=== PATIENT | male | born 1965 | race Caucasian/White ===

== ENCOUNTER 2018-03-21 11:07 | Inpatient (IN) | payer BC ==
[2018-03-21] MEDS ORDERED: methylPREDNISolone 125 MG* 2 ML VIAL IV ONE (11:28)
[2018-03-21] MEDS ORDERED: Albuterol/Ipratropium NEB.SOL* Albuterol 2.5 MG/Ipratropium 0.5 MG 3 ML INH ONE (11:28)
[2018-03-21] MEDS ORDERED: LORazepam INJ* 2 MG/ML 1 ML VIAL IV PUSH ONE (11:32)
--- NOTE | 2018-03-21 11:57 | RAD ---
INDICATION: Shortness of breath. COMPARISON: There are no relevant prior studies available for comparison. TECHNIQUE: A portable view of the chest was obtained. FINDINGS: Cardiac and mediastinal contours appear to be within normal limits. The lungs are underinflated and grossly clear. No pleural effusion is seen. IMPRESSION: LOW LUNG VOLUMES, NO EVIDENCE FOR ACUTE DISEASE.
[2018-03-21 12:04] LABS: ABS Basophils 0 10^3/ul (0-0.2); ABS Eosinophils 0 10^3/ul (0-0.6); ABS Lymphocytes 1.4 10^3/ul (1.0-4.8); ABS Monocytes 1.1 10^3/ul (0-0.8); ABS Neutrophils 11.8 10^3/ul (1.5-7.7); ABS Nucleated RBC 0 10^3/ul; Eosinophil % 0.2 % (0-6); Hematocrit 42 % (42-52); Hemoglobin 14.9 g/dl (14.0-18.0); Lymphocyte % 9.7 % (25-47); Mean Corpuscular HGB Conc 36 g/dl (31-36); Mean Corpuscular Hemoglobin 33 pg (27-31); Mean Corpuscular Volume 91 fL (80-94); Mean Platelet Volume 7.4 um3 (7.4-10.4); Nucleated Red Blood Cells % 0.1; Platelet Count 333 10^3/ul (150-450); Red Blood Count 4.57 10^6/ul (4.00-5.40); Red Cell Distribution Width 12 % (10.5-15); White Blood Count 14.4 10^3/ul (3.5-10.8)
[2018-03-21 12:39] LABS: EGFR Non-African American 100.5 (>60)
[2018-03-21] MEDS ORDERED: Potassium Chlor TAB* 20 MEQ TAB.ER PO ONE (12:45)
--- NOTE | 2018-03-21 12:47 | ED ---
Respiratory - HPI Summary HPI Summary: Pt is a 52 y/o male who [facility]/o [facility] distress. He states he began having difficulty breathing 3 weeks ago, and c/o raspy voice, throat swelling, a partially closed airway, and chest tightness. He has been to the [facility], and states the doctors there think something ruptured. Pt is currently on antibiotics and prednisone. Although the prednisone has been helping with the swelling, he states its been making him have panic attacks and wants to stop the medication. He has spent the past 2 nights in the [facility]. He denies any COPD, asthma, emphysema, CHF, or psychiatric problems. - History of Current Complaint Chief Complaint: EDRespiratoryDistress Stated Complaint: OBSTUCTED AIRWAY Time Seen by Provider: 03/21/18 11:27 Hx Obtained From: Patient Onset/Duration: Gradual Onset, Lasting Weeks - 3, Still Present Pain Intensity: 0 Character: Wheezing, Dyspnea at Rest Sputum Amount: None Alleviating Factor(s): Steriods - Prednisone, Antibiotics Associated Signs and Symptoms: SOB, Chest Pain - Tightness, Wheezing - Allergy/Home Medications Allergies/Adverse Reactions: Allergies Allergy/AdvReac Type Severity Reaction Status Date / Time No Known Allergies Allergy Verified 03/21/18 11:20 Home Medications: Home Medications Hydrochlorothiazide TAB* [Hydrodiuril TAB*] 25 mg PO DAILY 03/21/18 [History Confirmed 03/21/18] Metoprolol Tartrate [Lopressor] 50 mg PO BID 03/21/18 [History Confirmed ] amLODIPine TAB* [Norvasc 5 mg TAB*] 10 mg PO DAILY 03/21/18 [History Confirmed 03/21/18] predniSONE [Prednisone 20 MG TAB] 20 mg PO DAILY 03/21/18 [History Confirmed ] PMH/Surg Hx/FS Hx/Imm Hx Cardiovascular History: Denies: Hx Congestive Heart Failure Respiratory History: Denies: Hx Asthma, Hx Chronic Obstructive Pulmonary Disease (COPD) Psychiatric History: Denies: Hx Anxiety Infectious Disease History: No Infectious Disease History: Denies: Traveled Outside the [place] in Last 30 Days - Family History Known Family History: Negative: Diabetes - Social History Alcohol Use: Occasionally Hx Substance Use: No Substance Use Type: Reports: None Hx Tobacco Use: No Smoking Status (MU): Never Smoked Tobacco Review of Systems Positive: Other - Throat swelling Positive: Chest Pain - tightness Positive: Shortness Of Breath All Other Systems Reviewed And Are Negative: Yes Physical Exam - Summary Physical Exam Summary: Appearance: Well appearing, no pain distress Skin: warm, dry, reflects adequate perfusion Head/face: normal Eyes: EOMI, RADHA ENT: normal Neck: supple, non-tender Respiratory: bilateral wheezing, Cardiovascular: tachycardic Abdomen: non-tender, soft Bowel: present Musculoskeletal: normal, strength/ROM intact Neuro: normal, sensory motor intact, A&Ox3 Triage Information Reviewed: Yes Vital Signs On Initial Exam: Initial Vitals Temp Pulse Resp BP Pulse Ox 97.9 F 96 20 159/134 100 03/21/18 11:15 03/21/18 11:15 03/21/18 11:15 03/21/18 11:15 03/21/18 11:15 Vital Signs Reviewed: Yes Diagnostics - Vital Signs Vital Signs Temp Pulse Resp BP Pulse Ox 03/21/18 12:09 20 03/21/18 11:47 101 150/80 99 03/21/18 11:40 106 18 95 03/21/18 11:31 98 16 150/113 95 03/21/18 11:29 100 96 03/21/18 11:15 97.9 F 96 20 159/134 100 - Laboratory Lab Results: Lab Results 03/21/18 03/21/18 03/21/18 Range/Units 11:45 11:55 11:55 WBC 14.4 H (3.5-10.8) 10^3/ul RBC 4.57 (4.00-5.40) 10^6/ul Hgb 14.9 (14.0-18.0) g/dl Hct 42 (42-52) % MCV 91 (80-94) fL MCH 33 H (27-31) pg MCHC 36 (31-36) g/dl RDW 12 (10.5-15) % Plt Count 333 (150-450) 10^3/ul MPV 7.4 (7.4-10.4) um3 Neut % (Auto) 81.8 (38-83) % Lymph % (Auto) 9.7 L (25-47) % Don[place]han % (Auto) 8.0 H (0-7) % Eos % (Auto) 0.2 (0-6) % Baso % (Auto) 0.3 (0-2) % Absolute Neuts (auto) 11.8 H (1.5-7.7) 10^3/ul Absolute Lymphs (auto) 1.4 (1.0-4.8) 10^3/ul Absolute Monos (auto) 1.1 H (0-0.8) 10^3/ul Absolute Eos (auto) 0 (0-0.6) 10^3/ul Absolute Basos (auto) 0 (0-0.2) 10^3/ul Absolute Nucleated RBC 0 10^3/ul Nucleated RBC % 0.1 D-Dimer, Quantitative (Less Than 230) ng/mL ABG pH 7.42 (7.35-7.45) ABG pCO2 50 H (35-45) mmHg ABG pO2 201 H (80-100) mmHg ABG HCO3 30.0 (19-31) mmol/L ABG O2 Saturation 99.7 H (95-98) % ABG Base Excess 6.5 H (-2.0-2.0) Sodium 130 L (135-145) mmol/L Potassium 3.2 L (3.5-5.0) mmol/L Chloride 89 L (101-111) mmol/L Carbon Dioxide 33 H (22-32) mmol/L Anion Gap 8 (2-11) mmol/L BUN 11 (6-24) mg/dL Creatinine 0.81 (0.67-1.17) mg/dL Est GFR ( Amer) 121.6 (>60) Est GFR (Non-Af Amer) 100.5 (>60) BUN/Creatinine Ratio 13.6 (8-20) Glucose 107 H (70-100) mg/dL Lactic Acid (0.5-2.0) mmol/L Calcium 9.5 (8.6-10.3) mg/dL Total Bilirubin 1.20 H (0.2-1.0) mg/dL AST 18 (13-39) U/L ALT 21 (7-52) U/L Alkaline Phosphatase 83 (34-104) U/L Troponin I 0.01 (<0.04) ng/mL Total Protein 7.6 (6.4-8.9) g/dL Albumin 4.3 (3.2-5.2) g/dL Globulin 3.3 (2-4) g/dL Albumin/Globulin Ratio 1.3 (1-3) 03/21/18 03/21/18 Range/Units 11:55 11:55 WBC (3.5-10.8) 10^3/ul RBC (4.00-5.40) 10^6/ul Hgb (14.0-18.0) g/dl Hct (42-52) % MCV (80-94) fL MCH (27-31) pg MCHC (31-36) g/dl RDW (10.5-15) % Plt Count (150-450) 10^3/ul MPV (7.4-10.4) um3 Neut % (Auto) (38-83) % Lymph % (Auto) (25-47) % Don[place]han % (Auto) (0-7) % Eos % (Auto) (0-6) % Baso % (Auto) (0-2) % Absolute Neuts (auto) (1.5-7.7) 10^3/ul Absolute Lymphs (auto) (1.0-4.8) 10^3/ul Absolute Monos (auto) (0-0.8) 10^3/ul Absolute Eos (auto) (0-0.6) 10^3/ul Absolute Basos (auto) (0-0.2) 10^3/ul Absolute Nucleated RBC 10^3/ul Nucleated RBC % D-Dimer, Quantitative < 200 (Less Than 230) ng/mL ABG pH (7.35-7.45) ABG pCO2 (35-45) mmHg ABG pO2 (80-100) mmHg ABG HCO3 (19-31) mmol/L ABG O2 Saturation (95-98) % ABG Base Excess (-2.0-2.0) Sodium (135-145) mmol/L Potassium (3.5-5.0) mmol/L Chloride (101-111) mmol/L Carbon Dioxide (22-32) mmol/L Anion Gap (2-11) mmol/L BUN (6-24) mg/dL Creatinine (0.67-1.17) mg/dL Est GFR ( Amer) (>60) Est GFR (Non-Af Amer) (>60) BUN/Creatinine Ratio (8-20) Glucose (70-100) mg/dL Lactic Acid 1.1 (0.5-2.0) mmol/L Calcium (8.6-10.3) mg/dL Total Bilirubin (0.2-1.0) mg/dL AST (13-39) U/L ALT (7-52) U/L Alkaline Phosphatase (34-104) U/L Troponin I (<0.04) ng/mL Total Protein (6.4-8.9) g/dL Albumin (3.2-5.2) g/dL Globulin (2-4) g/dL Albumin/Globulin Ratio (1-3) Result Diagrams: 03/21/18 11:55 03/21/18 11:55 Lab Statement: Any lab studies that have been ordered have been reviewed, and results considered in the medical decision making process. - Radiology CXR Xray Interpretation: Positive (See Comments) - LOW LUNG VOLUMES, NO EVIDENCE FOR ACUTE DISEASE. ED physician reviewed radiology report. Radiology Interpretation Completed By: Radiologist - CT Neck CT CT Interpretation: Positive (See Comments) - The constellation of findings is concerning for a neoplastic lesion involving the LEFT aspect of the larynx with local extension. Direct optical inspection suggested. Negative for lymphadenopathy based on short axis size criteria. ED physician reviewed radiology report. CT Interpretation Completed By: Radiologist - EKG 11:55 Cardiac Rate: NL - 97 bpm EKG Rhythm: Sinus Rhythm EKG Interpretation: No acute changes. Disposition - Course Course Of Treatment: Pt is a 52 y/o male who presents to [facility] c/o respiratory distress. He states he began having difficulty breathing 3 weeks ago, and c/o raspy voice, throat swelling, a partially closed airway, and chest tightness. Pt is currently on antibiotics and prednisone. Although the prednisone has been helping with the swelling, he states its been making him have panic attacks and wants to stop the medication. He has spent the past 2 nights in the [facility]. He denies any COPD, asthma, emphysema, CHF. A physical exam revealed bilateral wheezing. A CXR revealed LOW LUNG VOLUMES, NO EVIDENCE FOR ACUTE DISEASE. A neck CT revealed The constellation of findings is concerning for a neoplastic lesion involving the LEFT aspect of the larynx with local extension. Direct optical inspection suggested. Negative for lymphadenopathy based on short axis size criteria. An EKG revealed normal rate of 97 bpm. 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 Discussed with Dr. Navarrete, who recommends pt be admitted to the ICU, and he will visit the pt in the ICU. Dr. Whittaker accepts pt for admission. Pt is agreeable with this plan. - Differential Dx - Cardiopulmonary Differential Diagnoses - Cardiopulmonary: Acute Dyspnea, Bronchitis, CHF, Exacerbation Of COPD, Laryngitis, Pulmonary Edema - Diagnoses Provider Diagnoses: Dyspnea, Stridor, Laryngeal neoplasm - Physician Notifications Discussed Care Of Patient With: Arnoldo Navarrete Time Discussed With Above Provider: 14:30 Instructed by Provider To: Admit As Inpatient - Admit pt to ICU, will visit pt in ICU - Critical Care Time Critical Care Time: 30-74 min - CCT is exclusive of separate billable procedures Discharge - Sign-Out/Discharge Documenting (check all that apply): Patient Departure - Admit, Sign-Out Patient Signing out patient TO: Yolande Whittaker - Discharge Plan Condition: Stable Disposition: ADMITTED TO [facility] - Billing Disposition and Condition Condition: STABLE Disposition: Admitted to [facility] - Attestation Statements Document Initiated by Scribe: Yes Documenting Scribe: Amber Bradley Provider For Whom Scribe is Documenting (Include Credential): James Langley MD Scribe Attestation: IAmber, scribed for James Langley MD on 03/21/18 at 1530. Scribe Documentation Reviewed: Yes Provider Attestation: The documentation as recorded by the efraínibAmber persaud accurately reflects the service I personally performed and the decisions made by me, James Langley MD
[2018-03-21] MEDS ORDERED: Iohexol 300* (CONTRAST) 10 ML SDV IV ONE (12:52)
--- NOTE | 2018-03-21 13:50 | RAD ---
INDICATION: Stridor and shortness of breath for 2 weeks. COMPARISON: Chest radiograph of the same date. TECHNIQUE: Multidetector CT images skull base to lung apices with 50 mL Omnipaque 300 IV contrast. Multiplanar reformation. REPORT: Clear visualized lung apices. Unremarkable parotid, submandibular, and thyroid glands. Unremarkable pharyngeal mucosal space contours and symmetric clear parapharyngeal fat. Irregular soft tissue thickening involving the LEFT false and true vocal cords. Asymmetric rarefaction of the LEFT arytenoid cartilage. Additionally there is segmental rarefaction of the LEFT thyroid cartilage with asymmetric mild overlying soft tissue density thickening. Contiguous asymmetric soft tissue density thickening of the LEFT aspect of the proximal subglottic airway extending up to 3 cm below the true vocal cords. No involvement of the RIGHT aspect of the larynx evident. 0.9 cm short axis normal morphology LEFT level 2 internal jugular lymph node within normal size limits with preserved fatty hilar architecture. Negative for lymphadenopathy based on short axis size criteria. Patent bilateral internal jugular veins. Mild calcific plaque at the carotid bifurcations. 0.9 cm mucous retention cyst or polyp at the anterior wall of the LEFT maxillary sinus. Negative for paranasal sinus fluid levels. Clear mastoid air spaces. Unremarkable orbital contents. Negative for suspicious osseous lesions. Cervical spine degenerative spondylosis and facet joint osteoarthritis most prominent at C5-C6 and C6-C7. IMPRESSION: #. The constellation of findings is concerning for a neoplastic lesion involving the LEFT aspect of the larynx with local extension. Direct optical inspection suggested. #. Negative for lymphadenopathy based on short axis size criteria.
[2018-03-21] MEDS ORDERED: Morphine INJ* 2 MG/ML 1 ML SYRINGE (TWO MG - NEW SYRINGE VERSION) IV PRN (15:01)
[2018-03-21] MEDS: KCL 20 MEQ/100 ML IVPREMIX* 20 MEQ/100 ML BAG IV SCH ×2 (16:02→23:20)
[2018-03-21] MEDS ORDERED: Lidocaine 4% TOPICAL* 50 ML TOP.SOLN TOPICAL ONE (17:00)
[2018-03-21] MEDS ORDERED: Phenylephrine 0.5% NASAL* BTL BOTH NARES ONE (17:30)
[2018-03-21] MEDS: methylPREDNISolone SOD 40 MG* 1 ML VIAL IV SCH (17:51)
[2018-03-21] MEDS ORDERED: Lidocain 1% EPI 1:100,000 * 30 ML MDV ONE (18:19)
--- NOTE | 2018-03-21 18:28 | HP ---
HISTORY AND PHYSICAL: DATE OF ADMISSION: 03/21/18 TIME OF EVALUATION: 2:50 p.m. CHIEF COMPLAINT: "It is hard to breathe." HISTORY OF PRESENT ILLNESS: Mr. Phelps is a 52-year-old male with a past medical history of hypertension who presents to the emergency room with complaints of difficulty breathing. He states that 3 weeks ago, he woke up with throat pain and sensation that something had "ruptured" in his throat. He states that he developed some pain and difficulty breathing that has gotten progressively worse. He was seen by his primary care provider and prescribed antibiotic and prednisone. He states that he had improvement of some of the external edema but felt that his throat was getting worse. He states that he has seen Dr. Villalba multiple times and actually had been referred to see an ENT , but the appointment is not until 04/13/18 and as his symptoms continue to worsen, he was referred to the emergency room for further evaluation. He denies fever, chills, chest pain, dysphagia. He states that he has become extremely anxious especially with the use of prednisone and because he is concerned, he would not be able to breathe. PAST MEDICAL HISTORY: Hypertension. PAST SURGICAL HISTORY: Status post appendectomy. SOCIAL HISTORY: The patient states that he used to chew tobacco sporadically when he was younger and also smokes cigars sporadically. No regular cigarettes. No drug use and he occasionally also has a beer, but has not had any drinks for the past 3 weeks. FAMILY HISTORY: He states that most of his family is pretty healthy and dies of old age. Denies history of malignancies. REVIEW OF SYSTEMS: A 14-point review of systems was performed, all the pertinent negatives and positive findings are in the HPI. PHYSICAL EXAMINATION GENERAL: The patient is an obese gentleman, sitting up in the ED stretcher, appears to be anxious, but is not in respiratory distress. VITAL SIGNS: Temperature 97.9, heart rate is 110, respiratory rate is 21, oxygen saturation 94% on room air, blood pressure is 149/114. NECK: Supple. Soft. No palpable lymphadenopathy. There is significant stridor. CHEST: Breath sounds present bilaterally with no added sounds. CVS: Normal S1, S2. Regular rate and rhythm. ABDOMEN: Obese. Bowel sounds are present. NEURO: He is alert and oriented x3. Able to move all 4 extremities. LABORATORY AND IMAGING DATA: The patient had a CBC that showed WBC of 14.4, hemoglobin of 14.9, hematocrit of 42, and platelets of 333 with 81% neutrophils. D- dimer is less than 200. ABG showed a pH of 7.42, pCO2 of 50, pO2 of 201, bicarb of 30. Chemistry showed a sodium of 130, potassium of 3.2, chloride 189, bicarb 33, BUN of 11, creatinine of 0.81, glucose of 107. Lactic acid of 1.1. Calcium 9.5. LFTs are normal except for mild elevation of total bilirubin of 1.2. Chest x-ray showed low lung volumes, but no evidence of acute disease. CT of the neck shows irregular soft tissue thickening involving the left false and true vocal cords. Asymmetric rarefaction of the left arytenoid cartilage with segmental rarefaction of the left thyroid cartilage with asymmetric mild overlying soft tissue density thickening. Contiguous asymmetric soft tissue density thickening of the left aspect of the proximal supraglottic airway extending up to 3 cm below the true vocal cords. There is no involvement of the right. There is no lymphadenopathy based on short axis size criteria. ASSESSMENT AND PLAN: Mr. Phelps is a 52-year-old male with past medical history of hypertension, obesity with a BMI of 31 who presents to the emergency room with complaints of 3 weeks of progressive shortness of breath and sensation that something "ruptured" in his throat, found to have a lesion involving the left aspect of the larynx suggestive of a neoplastic lesion. 1. Stridor. The patient will be admitted to the intensive care unit and a consultation was requested with Dr. Valles to help manage his airways and also with ENT, Dr. Navarrete for further diagnostic measures. The patient states that his tobacco exposure is not intense but reviewing his images, this could be a malignancy. At this point, he appears to be anxious and has stridor but he is not tachypneic. His oxygen saturation is 95% on 2 L nasal cannula. I am going to continue him on IV steroids and he will be closely monitored in the intensive care unit. 2. Hypertension. It is mildly uncontrolled at this time. We are going to continue his amlodipine and metoprolol and continue to monitor. 3. Hypokalemia. We will replete. 4. DVT prophylaxis. The patient has score of 2 on the DVT Prophylaxis Risk Assessment Guide and he will be started on SCDs. 5. Code status is full. TIME SPENT: Approximately 45 minutes were spent with patient interview, medical records review, physical examination to complete the admission; more than half of this time was spent [id number] with the patient and coordination of care. [id number]/[facility] #: [id number] ANAD
--- NOTE | 2018-03-21 21:38 | CONS ---
CONSULTATION REPORT: DATE OF CONSULT: 03/21/18 REQUESTING CONSULTATION: Dr. Santos is asking for the consultation, the patient in the ICU. HISTORY OF PRESENT ILLNESS: The patient is a 52-year-old who has had progressive shortness of breath. He first started losing his voice a while ago and it seemed to start acutely where he got sick, saw some blood. He also recently had some neck swelling, but most recently he has been having progressive worsening in his voice and shortness of breath and was admitted to the emergency room where he was noted to have significant stridor, oxygen in the low 90s and CT scan showing some type of obstructing mass in his larynx. He does not smoke cigarettes, he smokes marijuana recreationally and some cigars recreationally, but not recently. He is being treated for hypertension, but otherwise says he is healthy and no definitive antecedent cause of this. PHYSICAL EXAM: On physical examination, he is having audible inspiratory and expiratory stridor with oxygen saturation in the low 90s, on supplemental oxygen by face mask. Nasal laryngoscopy was performed after spraying his nose with Dar- Synephrine and 4% lidocaine. He has a significantly compromised airway. The larynx is rotated. He does not have left vocal cord movement, possibly a mass bulging in his supraglottis on that side that is mucosal. Exact visualization is very difficult. ASSESSMENT: The patient is having inspiratory expiratory stridor. He has some type of obstructing mass causing dysfunction of his larynx and airway obstruction. I believe that he potentially is in imminent danger of respiratory failure if left untreated. RECOMMENDATION: Emergent, awake tracheostomy, I do not think it is safe for intubation. We discussed the tracheostomy, the risks of airway obstruction by not doing this surgery, but we also discussed the small risk of airway obstruction during surgery, the fact that it needs to be done local, meaning not under full general anesthesia. We discussed the small risks of bleeding, infection. Once this is done and his airway is , he will feel better and that gives us the time to try to figure out what is going on. Tracheostomies can be permanent or temporary depending on need. The initial tracheostomy I am going to put him will not allow him to talk, but over time, it can be switched out to one to allow him to do so. [id number]/[facility] #: [id number] [facility] SYSTEM[facility]
[2018-03-21] MEDS: Metoprolol Tartrate TAB* 50 mg PO SCH (23:20)
[2018-03-22] MEDS ORDERED: KCL 20 MEQ/100 ML IVPREMIX* 20 MEQ/100 ML BAG ONE (02:07)
[2018-03-22] MEDS: KCL 20 MEQ/100 ML IVPREMIX* 20 MEQ/100 ML BAG IV SCH (02:20)
--- NOTE | 2018-03-22 05:04 | OP ---
DATE OF OPERATION: 03/21/18 - ROOM #ICU-07 DATE OF : 67 SURGEON: Misha Navarrete MD SALESPERSON FURNITURE: Dr. Blum. PRE-OP DIAGNOSIS: Stridor, laryngeal obstruction. POST-OP DIAGNOSIS: Stridor, laryngeal obstruction. OPERATIVE PROCEDURE: Tracheostomy under local with some IV sedation. ESTIMATED BLOOD LOSS: Less than 5 mL. INSTRUMENT USED: A #8 Shiley DCT tracheostomy tube was placed. DESCRIPTION OF PROCEDURE: The patient was taken from the ICU to the operating room and put in a semi recumbent position on the operating room table with his head extended, prepped with Betadine and injected with 1% lidocaine with 1:100, 000 epinephrine. A vertical incision made over the anterior tracheostomy tube, dissection was taken down through the fat, median raphe was opened, strap muscles retracted, thyroid isthmus was isolated, bovied to cut it and the anterior tracheal wall was exposed. A 11 blade was used to make an incision between 2 tracheal rings, this was widened with some Crump scissors. A tracheal cut had been placed opening open and a #8 DCT tracheostomy tube was placed and balloon was blown up and cannula was put in and he was connected to the ventilator and he was deepened at that time. The trach was sutured in place with 4 silks and a small portion of the superior incision was closed with some 3 -0 Vicryl. We then used the glide scope to do a laryngoscopy. He had significant airway obstruction but I am unsure why. There was no masses that I can see, just fullness with medialization of the vocal cord. The patient tolerated this procedure well, no complications, transferred to the ICU in stable condition. [id number]/[facility] #: [id number] MTDD
[2018-03-22] MEDS: methylPREDNISolone SOD 40 MG* 1 ML VIAL IV SCH ×2 (05:29→18:15)
[2018-03-22 06:15] LABS: ABS Basophils 0.1 10^3/ul (0-0.2); ABS Eosinophils 0 10^3/ul (0-0.6); ABS Lymphocytes 0.5 10^3/ul (1.0-4.8); ABS Monocytes 0.8 10^3/ul (0-0.8); ABS Neutrophils 20.7 10^3/ul (1.5-7.7); ABS Nucleated RBC 0.1 10^3/ul; Eosinophil % 0 % (0-6); Hematocrit 42 % (42-52); Lymphocyte % 2.4 % (25-47); Mean Corpuscular HGB Conc 36 g/dl (31-36); Mean Corpuscular Hemoglobin 33 pg (27-31); Mean Corpuscular Volume 92 fL (80-94); Mean Platelet Volume 7.7 um3 (7.4-10.4); Nucleated Red Blood Cells % 0.3; Platelet Count 307 10^3/ul (150-450); Red Blood Count 4.54 10^6/ul (4.00-5.40); Red Cell Distribution Width 12 % (10.5-15); White Blood Count 22.1 10^3/ul (3.5-10.8)
[2018-03-22 06:33] LABS: EGFR Non-African American 85.7 (>60)
[2018-03-22] MEDS: amLODIPine TAB* 5 MG PO SCH (07:30)
[2018-03-22] MEDS: Metoprolol Tartrate TAB* 50 mg PO SCH ×2 (07:30→22:56)
--- NOTE | 2018-03-22 12:15 | CONSULT ---
Consult Consult: Consultation Note -- Critical Care Requesting Physician: Dr Whittaker Reason for consult: upper airway obstruction, laryngeal mass Limitations in history/physical: trach'ed, no limiting Date of consult: 03/22/2018 HPI: 52y M pmhx of HTN; comes to ER for complaints of 2-3 weeks of increasing shortness of breath, change in voice. Recent [facility] ER visits with minimal improvement. in ER, tachypneic, sats low 90s. CXR clear. He showed stridor on exam. CT neck demonstrated left laryngeal mass. ENT consultation was done and decision for emergent trach. He is now s/p tracheostomy last night. Currently in bed, awake/alert, on trach collar, no distress. Afebrile, BP elevated, tachycardic intermittently. ED/floor Course: as above ROS: negative except for pertinent positives mentioned above. PMHx: HTN PSHx: none Family History: none significant Social History: Alcohol-social, Smoking-no cig, marijuana occasional, cigars at times, Drug use-none Allergies: Allergies Allergy/AdvReac Type Severity Reaction Status Date / Time No Known Allergies Allergy Verified 03/21/18 11:20 Home Medications: Hydrochlorothiazide TAB* [Hydrodiuril TAB*] 25 mg PO DAILY 03/21/18 [History Confirmed 03/21/18] Metoprolol Tartrate [Lopressor] 50 mg PO BID 03/21/18 [History Confirmed ] amLODIPine TAB* [Norvasc 5 mg TAB*] 10 mg PO DAILY 03/21/18 [History Confirmed 03/21/18] predniSONE [Prednisone 20 MG TAB] 20 mg PO DAILY 03/21/18 [History Confirmed ] Tele: nsr, sinus tachy at times Vitals: Vital Signs Temp 98 F 03/22/18 11:53 Pulse 99 03/22/18 12:00 Resp 23 03/22/18 12:00 BP 146/100 03/22/18 12:00 Pulse Ox 96 03/22/18 12:00 Intake & Output 03/21/18 03/22/18 03/22/18 18:59 06:59 18:59 Intake Total 1172 Output Total 825 500 625 Balance -825 672 -625 Weight 106 kg 106.1 kg Intake: IV Fluids 1172 KCl 323 NS (0.9%) 849 Output: Urine 825 500 625 O2/Vent: trach collar Infusions: heplock Current Medications: Amlodipine Besylate (Norvasc Tab*) 10 mg PO DAILY [facility] Last Admin: 03/22/18 07:30 Dose: Not Given Methylprednisolone Sodium Succinate (Solu-Medrol 40 Mg) 40 mg IV Q12H [facility] Last Admin: 03/22/18 05:29 Dose: 40 mg Metoprolol Tartrate (Lopressor Tab*) 50 mg PO BID [facility] Last Admin: 03/22/18 07:30 Dose: Not Given Metoprolol Tartrate (Lopressor Iv*) 5 mg IV Q6H PRN PRN Reason: BLOOD PRESSURE Morphine Sulfate (Morphine Inj ((Syringe))*) 2 mg IV Q2H PRN PRN Reason: PAIN Physical Exam: General: awake, alert, no distress, no diaphoresis Head: normocephalic, atraumatic HEENT: no pallor, no icterus, moist mucous membranes Neck: soft, supple, no jvd; Trach+ CVS: normal rate, regular, no murmur Resp: bilateral air entry, no rhales, no wheeze, no rhonchi, no acc muscle use Abdomen: soft, nontender, nondistended, bowel sounds present Ext: pulses+, warm, no edema Skin: intact Neuro: awake, alert, orientedx3, moving all extremities, no gross focal deficit Labs: Laboratory Results - last 24 hr 03/21/18 03/21/18 03/21/18 11:55 11:55 11:55 WBC RBC Hgb Hct MCV MCH MCHC RDW Plt Count MPV Neut % (Auto) Lymph % (Auto) [place] % (Auto) Eos % (Auto) Baso % (Auto) Absolute Neuts (auto) Absolute Lymphs (auto) Absolute Monos (auto) Absolute Eos (auto) Absolute Basos (auto) Absolute Nucleated RBC Nucleated RBC % Sodium 130 L Potassium 3.2 L Chloride 89 L Carbon Dioxide 33 H Anion Gap 8 BUN 11 Creatinine 0.81 Est GFR ( Amer) 121.6 Est GFR (Non-Af Amer) 100.5 BUN/Creatinine Ratio 13.6 Glucose 107 H Lactic Acid 1.1 Calcium 9.5 Total Bilirubin 1.20 H AST 18 ALT 21 Alkaline Phosphatase 83 Troponin I 0.01 B-Natriuretic Peptide 41 Total Protein 7.6 Albumin 4.3 Globulin 3.3 Albumin/Globulin Ratio 1.3 03/22/18 03/22/18 06:07 06:07 WBC 22.1 H RBC 4.54 Hgb 15.0 Hct 42 MCV 92 MCH 33 H MCHC 36 RDW 12 Plt Count 307 MPV 7.7 Neut % (Auto) 93.8 H Lymph % (Auto) 2.4 L [place] % (Auto) 3.6 Eos % (Auto) 0 Baso % (Auto) 0.2 Absolute Neuts (auto) 20.7 H Absolute Lymphs (auto) 0.5 L Absolute Monos (auto) 0.8 Absolute Eos (auto) 0 Absolute Basos (auto) 0.1 Absolute Nucleated RBC 0.1 Nucleated RBC % 0.3 Sodium 136 Potassium 4.3 Chloride 99 L Carbon Dioxide 30 Anion Gap 7 BUN 12 Creatinine 0.93 Est GFR ( Amer) 103.6 Est GFR (Non-Af Amer) 85.7 BUN/Creatinine Ratio 12.9 Glucose 136 H Lactic Acid Calcium 9.5 Total Bilirubin AST ALT Alkaline Phosphatase Troponin I B-Natriuretic Peptide Total Protein Albumin Globulin Albumin/Globulin Ratio Imaging: ct neck 03/21 - left laryngeal mass+ Assessment: 52y M pmhx of HTN; comes to ER for complaints of 2-3 weeks of increasing shortness of breath, change in voice. Recent [facility] ER visits with minimal improvement. in ER, tachypneic, sats low 90s. CXR clear. He showed stridor on exam. CT neck demonstrated left laryngeal mass. ENT consultation was done and decision for emergent trach. He is now s/p tracheostomy last night. -Upper airway obstruction 2/2 to laryngeal mass -acute respiratory distress, improved -s/p tracheostomy 03/21 -Hypertension Plan: Neuro- stable CVS- hypertensive; metoprolol 5mg iv q6h. metoprolol/norvasc PO when able to take po. Resp- s/p trach; stable on trach collar. minimal secretions. MRI of neck pending. ENT following. Will require tissue sampling at some point to know etiology. ID- afebrile. wbc 22. nontoxic. no sepsis source. no abx indicated, monitoring off. GI- NPO. s/p trach. will talk to ENT about eating with cuff down vs need for PEG. PPI proph daily while on steroids. Renal- Cr okay, making urine. no boykin Heme- hg stable. plt okay. DVT proph, mechanical, chemical if no contraind Endo- fingerstick q6h Musculsk- pressure ulcer prophylaxis. Bedrest Wounds- wound care to trach site Nutrition- NPO DVT prophylaxis: SCDs GI prophylaxis: ppi Central Line: no Arterial Line: no Boykin Cathetor: no Disposition: ICU today Code Status: full code Costa Jacobsen MD [employer]ing Wheel [employer]aker (Electronically Signed)
[2018-03-22] MEDS: Metoprolol Tartrate IV* 1 MG/ML 5 ML VIAL IV PRN (14:55)
[2018-03-22] MEDS ORDERED: hydrALAZINE IV* 20 MG/ML VIAL IV SLOW PU PRN (15:29)
[2018-03-22] MEDS ORDERED: D5LR 1000 ML BAG* 1,000 ML IV SCH (16:00)
[2018-03-22] MEDS: ZOSYN 3.375 GM Q6H - Intermittant 30 min Infusion IVPB SCH ×2 (20:23)
[2018-03-23] MEDS: ZOSYN 3.375 GM Q6H - Intermittant 30 min Infusion IVPB SCH ×4 (02:40→07:39)
[2018-03-23] MEDS: methylPREDNISolone SOD 40 MG* 1 ML VIAL IV SCH ×2 (07:39→18:16)
[2018-03-23] MEDS: Metoprolol Tartrate IV* 1 MG/ML 5 ML VIAL IV PRN ×2 (07:39→16:23)
[2018-03-23] MEDS: Pantoprazole IV* 40 MG IV SCH (07:39)
[2018-03-23] MEDS: Metoprolol Tartrate TAB* 50 mg PO SCH ×3 (07:40→21:37)
[2018-03-23] MEDS: amLODIPine TAB* 5 MG PO SCH (07:40)
[2018-03-23] MEDS ORDERED: Piperacillin/Tazobac ADVAN(*) 3.375 GM in NS 0.9% 100 ML* 100 ML IVPB SCH (09:00)
--- NOTE | 2018-03-23 10:41 | PN ---
Progress Note - Progress Note Date of Service: 03/23/18 Note: Progress Note -- Critical Care 24 hr events -on trach collar; no distress. tmax 100.1 yesterday. cough+, minimal sputum. awake/alert, in chair. Tele: nsr Vitals: Vital Signs Temp 99.0 F 03/23/18 07:52 Pulse 86 03/23/18 10:00 Resp 16 03/23/18 10:00 BP 134/95 03/23/18 10:00 Pulse Ox 94 03/23/18 10:00 Intake & Output 03/22/18 03/23/18 03/23/18 18:59 06:59 18:59 Intake Total 824 0 Output Total 1175 450 Balance -1175 374 0 Weight 104.4 kg Intake: IV Fluids 824 ABX - ZOSYN 332 NS (0.9%) 492 Oral 0 Output: Urine 1175 450 O2/Vent: trach collar Infusions: d5-LR 50cc/hr Current Medications: Amlodipine Besylate (Norvasc Tab*) 10 mg PO DAILY [facility] Last Admin: 03/23/18 07:40 Dose: Not Given Hydralazine HCl (Apresoline Iv*) 2.5 mg IV SLOW PU Q6H PRN PRN Reason: hypertension DBP>95 Last Admin: 03/22/18 16:52 Dose: 2.5 mg Dextrose/Lactated Ringer's (D5lr 1000 Ml Bag*) 1,000 mls @ 50 mls/hr IV PER RATE [facility] Last Admin: 03/22/18 16:06 Dose: 50 mls/hr Piperacillin Sod/Tazobactam (Sod 3.375 gm/ Sodium Chloride) 100 mls @ 200 mls/ hr IVPB Q8H [facility] Methylprednisolone Sodium Succinate (Solu-Medrol 40 Mg) 40 mg IV Q12H [facility] Last Admin: 03/23/18 07:39 Dose: 40 mg Metoprolol Tartrate (Lopressor Tab*) 50 mg PO BID [facility] Last Admin: 03/23/18 07:40 Dose: Not Given Metoprolol Tartrate (Lopressor Iv*) 5 mg IV Q6H PRN PRN Reason: SYSTOLIC >140 Last Admin: 03/23/18 07:39 Dose: 5 mg Morphine Sulfate (Morphine Inj ((Syringe))*) 2 mg IV Q2H PRN PRN Reason: PAIN Pantoprazole Sodium (Protonix Iv*) 40 mg IV DAILY [facility] Last Admin: 03/23/18 07:39 Dose: 40 mg Physical Exam: General: awake, alert, no distress, no diaphoresis Head: normocephalic, atraumatic HEENT: no pallor, no icterus, moist mucous membranes Neck: soft, supple, no jvd; Trach+ CVS: normal rate, regular, no murmur Resp: bilateral air entry, no rhales, no wheeze, no rhonchi, no acc muscle use Abdomen: soft, nontender, nondistended, bowel sounds present Ext: pulses+, warm, no edema Skin: intact Neuro: awake, alert, orientedx3, moving all extremities, no gross focal deficit Labs: - Imaging: ct neck 03/21 - left laryngeal mass+ Assessment: 52y M pmhx of HTN; comes to ER for complaints of 2-3 weeks of increasing shortness of breath, change in voice. Recent [facility] ER visits with minimal improvement. in ER, tachypneic, sats low 90s. CXR clear. He showed stridor on exam. CT neck demonstrated left laryngeal mass. ENT consultation was done and decision for emergent trach. He is now s/p tracheostomy last night. -Upper airway obstruction 2/2 to laryngeal mass -acute respiratory distress, improved -s/p tracheostomy 03/21 -Hypertension Plan: Neuro- stable CVS- hypertensive; metoprolol 5mg iv q6h, hydralazine IV prn. metoprolol/ norvasc PO when able to take po. Resp- s/p trach; stable on trach collar. minimal secretions. MRI of neck today. Plan for OR wednesday for mass resection by ENT. ID- afebrile. wbc 20s. may be 2/2 to steroids. nontoxic. no sepsis source. no abx indicated, monitoring off. GI- NPO. s/p trach. obtain swallow eval if he can eat around trach while deflated. WIll need to determine skilled nursing nutritional plan, PO vs PEG, depending on tissue findings. PPI proph daily while on steroids. Renal- Cr okay, making urine. no boykin. d5-Lr 50cc/hr Heme- hg stable. plt okay. DVT proph, mechanical, chemical if no contraind Endo- fingerstick q6h Musculsk- pressure ulcer prophylaxis. oob to chair Wounds- wound care to trach site Nutrition- NPO DVT prophylaxis: SCDs GI prophylaxis: ppi Central Line: no Arterial Line: no Boykin Cathetor: no Disposition: clinically stable for medical floor transfer on trach collar Code Status: full code Costa Jacobsen MD Reverse Engineer (Electronically Signed)
[2018-03-23] MEDS ORDERED: D5NS 0.9% 1000 ML BAG* 1,000 ML IV SCH ×2 (12:00→19:00)
[2018-03-23 13:15] LABS: Hematocrit 42 % (42-52); Hemoglobin 14.2 g/dl (14.0-18.0); Mean Corpuscular HGB Conc 34 g/dl (31-36); Mean Corpuscular Hemoglobin 32 pg (27-31); Mean Corpuscular Volume 94 fL (80-94); Mean Platelet Volume 8.4 um3 (7.4-10.4); Platelet Count 358 10^3/ul (150-450); Red Blood Count 4.45 10^6/ul (4.00-5.40); Red Cell Distribution Width 12 % (10.5-15); White Blood Count 25.5 10^3/ul (3.5-10.8)
[2018-03-23 13:25] LABS: EGFR Non-African American 87.8 (>60)
[2018-03-23] MEDS ORDERED: Gadoteridol* (CONTRAST) 279.3 MG/ML 10 ML IV ONE (13:55)
--- NOTE | 2018-03-23 14:29 | RAD ---
Indication: Upper airway obstruction. Soft tissue thickening noted on CT. Comparison: March 21, 2018 CT. Technique: Cytonicsa 1.5 Pamela [id number] with GEM suite. Pre and postcontrast MRI of the neck. 20 mL ProHance contrast administered IV. Report: Postsurgical change of tracheostomy. Mucosal thickening involving the LEFT false and true vocal cords with heterogeneous enhancement on the postcontrast series with contiguous extension to involve the arytenoid cartilage posteriorly and thyroid cartilage anterolaterally. Extension of enhancing material up to 0.7 cm superficial to the RIGHT thyroid cartilage anteriorly laterally possibly involving the overlying strap muscle. There is enhancement of the RIGHT false and true vocal cords without significant mass effect which may represent early infiltrative tumor involvement. Partial compression of the the LEFT piriform recess. Unremarkable RIGHT piriform recess, epiglottis, and vallecula. Unremarkable oral and nasopharyngeal mucosal space contours. Negative for lymphadenopathy based on short axis size criteria. Unremarkable submandibular, parotid, and thyroid glands. Patent internal jugular veins. No suspicious osseous lesions evident. Abnormal signal intensity at the posterior medial RIGHT lung apex/pleura/chest wall on the axial T2 FLAIR series is likely artifact given absence of corresponding abnormality on additional MRI series or March 21, 2018 CT exam. IMPRESSION: #. 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 #. Negative for lymphadenopathy based on short axis size criteria. #. Tracheostomy tube in place.
[2018-03-23] MEDS: hydrALAZINE IV* 20 MG/ML VIAL IV SLOW PU PRN ×2 (14:43→20:22)
[2018-03-23] MEDS ORDERED: Gadoteridol* (CONTRAST) 279.3 MG/ML 10 ML IV SCH (15:00)
[2018-03-23] MEDS: Piperacillin/Tazobac ADVAN(*) 3.375 GM in NS 0.9% 100 ML* 100 ML IVPB SCH ×2 (15:55→23:08)
--- NOTE | 2018-03-23 21:17 | CONS ---
PROGRESS REPORT: DATE OF SERVICE: 03/23/18 HISTORY OF PRESENT ILLNESS: The patient is doing well after his tracheostomy. He is sitting up in the chair, not having breathing difficulty. He is able to talk a little bit even with the #[address] Santana earlier in the day deflated the cuff. He had an MRI this afternoon that I am reviewing with him at this time. The MRI was not very helpful. My hope was it would help us delineate the extent of the mass and what type it is, but what we do now is that he has a large obstructing mass in his larynx. There is an outside chance that this is infection, but looking at it, it looks like a tumor of some sort. Unfortunately, most laryngeal tumors are malignant, but we do not know what it is at this time. He asked about removal of the mass and unfortunately with the size that it is, that we would probably mean a total laryngectomy, so obviously the hope is that it is not necessary. He is able to drink water without any problems, so I think a pureed diet advance as tolerated can be initiated. The plan is for microlaryngoscopy with biopsies and a tracheostomy change on Wednesday. I would put a fenestrated trach in that will allow him to talk better. From a laryngology standpoint, he could be transferred to the surgical floor. I discussed this with both the patient and Dr. Jacobsen. [id number]/[facility] #: [id number] PAZ
[2018-03-23] MEDS ORDERED: Metoprolol Tartrate IV* 1 MG/ML 5 ML VIAL IV PRN ×2 (23:25→23:28)
[2018-03-24] MEDS ORDERED: Metoprolol Tartrate IV* 1 MG/ML 5 ML VIAL IV PRN (04:16)
[2018-03-24] MEDS ORDERED: hydrALAZINE IV* 20 MG/ML VIAL IV SLOW PU ONE (04:16)
[2018-03-24] MEDS: Piperacillin/Tazobac ADVAN(*) 3.375 GM in NS 0.9% 100 ML* 100 ML IVPB SCH ×4 (08:56→18:49)
[2018-03-24] MEDS: Pantoprazole IV* 40 MG IV SCH (09:45)
[2018-03-24] MEDS: Metoprolol Tartrate TAB* 50 mg PO SCH ×2 (09:45→20:13)
[2018-03-24] MEDS: methylPREDNISolone SOD 40 MG* 1 ML VIAL IV SCH (09:45)
[2018-03-24] MEDS: amLODIPine TAB* 5 MG PO SCH (09:45)
[2018-03-24] MEDS: D5NS 0.9% 1000 ML BAG* 1,000 ML IV SCH (10:25)
--- NOTE | 2018-03-24 12:16 | PN ---
Subjective Date of Service: 03/24/18 Interval History: Patient with no complaints. Denies any pain to his throat or neck. Denies difficulty breath or chest pain. Denies fever or chills. Denies abd pain n/v/ d. lips that he feels "awesome" Noted to have pac's on the monitor. Family History: Unchanged from Admission Social History: Unchanged from Admission Past Medical History: Unchanged from Admission Objective Active Medications: Amlodipine Besylate (Norvasc Tab*) 10 mg PO DAILY [facility] Last Admin: 03/24/18 09:45 Dose: 10 mg Gadoteridol (Prohance* (Contrast)) 20 ml IV ONCE [facility] Stop: 03/25/18 13:54 Piperacillin Sod/Tazobactam (Sod 3.375 gm/ Sodium Chloride) 100 mls @ 25 mls/ hr IVPB Q8H [facility] Last Admin: 03/24/18 08:56 Dose: 25 mls/hr Dextrose/Sodium Chloride (D5ns 0.9% 1000 Ml Bag*) 1,000 mls @ 75 mls/hr IV .PER RATE [facility] Last Admin: 03/24/18 10:25 Dose: 75 mls/hr Methylprednisolone Sodium Succinate (Solu-Medrol 40 Mg) 40 mg IV DAILY [facility] Last Admin: 03/24/18 09:45 Dose: 40 mg Metoprolol Tartrate (Lopressor Tab*) 50 mg PO BID [facility] Last Admin: 03/24/18 09:45 Dose: 50 mg Metoprolol Tartrate (Lopressor Iv*) 5 mg IV Q6H PRN PRN Reason: HEART RATE/PULSE Morphine Sulfate (Morphine Inj ((Syringe))*) 2 mg IV Q2H PRN PRN Reason: PAIN Pantoprazole Sodium (Protonix Iv*) 40 mg IV DAILY [facility] Last Admin: 03/24/18 09:45 Dose: 40 mg Vital Signs - 8 hr 03/24/18 03/24/18 03/24/18 04:16 04:58 05:00 Temperature Pulse Rate 67 68 76 Respiratory 16 16 20 Rate Blood Pressure 146/111 133/98 140/94 (mmHg) O2 Sat by Pulse 96 97 96 Oximetry 03/24/18 03/24/18 03/24/18 05:48 06:00 07:40 Temperature 97.2 F Pulse Rate 75 71 76 Respiratory 15 15 20 Rate Blood Pressure 128/88 121/86 143/103 (mmHg) O2 Sat by Pulse 92 91 97 Oximetry 03/24/18 03/24/18 03/24/18 07:53 07:55 08:00 Temperature Pulse Rate Respiratory 20 Rate Blood Pressure (mmHg) O2 Sat by Pulse 97 97 Oximetry Oxygen Devices in Use Now: Tracheostomy Collar Appearance: appears comfortable resting in bed, no respiratory distress Eyes: No Scleral Icterus Ears/Nose/Mouth/Throat: Mucous Membranes Moist Neck: NL Appearance and Movements; NL JVP, - - trach in place, small amount dried blood noted around the trach. Respiratory: Symmetrical Chest Expansion and Respiratory Effort, Clear to Auscultation Cardiovascular: NL Sounds; No Murmurs; No JVD, No Edema Abdominal: NL Sounds; No Tenderness; No Distention Extremities: No Edema, No Clubbing, Cyanosis Skin: No Rash or Ulcers Neurological: Alert and Oriented x 3 Lines/Tubes/Other Access: Clean, Dry and Intact Tracheostomy - smal amount of dried blood noted around trach, patent Nutrition: Taking PO's Result Diagrams: 03/23/18 11:04 03/23/18 11:04 Additional Lab and Data: Lab Results 03/21/18 03/21/18 03/21/18 Range/Units 11:45 11:55 11:55 WBC 14.4 H (3.5-10.8) 10^3/ul RBC 4.57 (4.00-5.40) 10^6/ul Hgb 14.9 (14.0-18.0) g/dl Hct 42 (42-52) % MCV 91 (80-94) fL MCH 33 H (27-31) pg MCHC 36 (31-36) g/dl RDW 12 (10.5-15) % Plt Count 333 (150-450) 10^3/ul MPV 7.4 (7.4-10.4) um3 Neut % (Auto) 81.8 (38-83) % Lymph % (Auto) 9.7 L (25-47) % [place] % (Auto) 8.0 H (0-7) % Eos % (Auto) 0.2 (0-6) % Baso % (Auto) 0.3 (0-2) % Absolute Neuts (auto) 11.8 H (1.5-7.7) 10^3/ul Absolute Lymphs (auto) 1.4 (1.0-4.8) 10^3/ul Absolute Monos (auto) 1.1 H (0-0.8) 10^3/ul Absolute Eos (auto) 0 (0-0.6) 10^3/ul Absolute Basos (auto) 0 (0-0.2) 10^3/ul Absolute Nucleated RBC 0 10^3/ul Nucleated RBC % 0.1 D-Dimer, Quantitative (Less Than 230) ng/mL ABG pH 7.42 (7.35-7.45) ABG pCO2 50 H (35-45) mmHg ABG pO2 201 H (80-100) mmHg ABG HCO3 30.0 (19-31) mmol/L ABG O2 Saturation 99.7 H (95-98) % ABG Base Excess 6.5 H (-2.0-2.0) Sodium 130 L (135-145) mmol/L Potassium 3.2 L (3.5-5.0) mmol/L Chloride 89 L (101-111) mmol/L Carbon Dioxide 33 H (22-32) mmol/L Anion Gap 8 (2-11) mmol/L BUN 11 (6-24) mg/dL Creatinine 0.81 (0.67-1.17) mg/dL Est GFR ( Amer) 121.6 (>60) Est GFR (Non-Af Amer) 100.5 (>60) BUN/Creatinine Ratio 13.6 (8-20) Glucose 107 H (70-100) mg/dL Lactic Acid (0.5-2.0) mmol/L Calcium 9.5 (8.6-10.3) mg/dL Total Bilirubin 1.20 H (0.2-1.0) mg/dL AST 18 (13-39) U/L ALT 21 (7-52) U/L Alkaline Phosphatase 83 (34-104) U/L Troponin I 0.01 (<0.04) ng/mL Total Protein 7.6 (6.4-8.9) g/dL Albumin 4.3 (3.2-5.2) g/dL Globulin 3.3 (2-4) g/dL Albumin/Globulin Ratio 1.3 (1-3) 08/27/18 08/27/18 Range/Units 11:55 11:55 WBC (3.5-10.8) 10^3/ul RBC (4.00-5.40) 10^6/ul Hgb (14.0-18.0) g/dl Hct (42-52) % MCV (80-94) fL MCH (27-31) pg MCHC (31-36) g/dl RDW (10.5-15) % Plt Count (150-450) 10^3/ul MPV (7.4-10.4) um3 Neut % (Auto) (38-83) % Lymph % (Auto) (25-47) % [place] % (Auto) (0-7) % Eos % (Auto) (0-6) % Baso % (Auto) (0-2) % Absolute Neuts (auto) (1.5-7.7) 10^3/ul Absolute Lymphs (auto) (1.0-4.8) 10^3/ul Absolute Monos (auto) (0-0.8) 10^3/ul Absolute Eos (auto) (0-0.6) 10^3/ul Absolute Basos (auto) (0-0.2) 10^3/ul Absolute Nucleated RBC 10^3/ul Nucleated RBC % D-Dimer, Quantitative < 200 (Less Than 230) ng/mL ABG pH (7.35-7.45) ABG pCO2 (35-45) mmHg ABG pO2 (80-100) mmHg ABG HCO3 (19-31) mmol/L ABG O2 Saturation (95-98) % ABG Base Excess (-2.0-2.0) Sodium (135-145) mmol/L Potassium (3.5-5.0) mmol/L Chloride (101-111) mmol/L Carbon Dioxide (22-32) mmol/L Anion Gap (2-11) mmol/L BUN (6-24) mg/dL Creatinine (0.67-1.17) mg/dL Est GFR ( Amer) (>60) Est GFR (Non-Af Amer) (>60) BUN/Creatinine Ratio (8-20) Glucose (70-100) mg/dL Lactic Acid 1.1 (0.5-2.0) mmol/L Calcium (8.6-10.3) mg/dL Total Bilirubin (0.2-1.0) mg/dL AST (13-39) U/L ALT (7-52) U/L Alkaline Phosphatase (34-104) U/L Troponin I (<0.04) ng/mL Total Protein (6.4-8.9) g/dL Albumin (3.2-5.2) g/dL Globulin (2-4) g/dL Albumin/Globulin Ratio (1-3) Microbiology and Other Data: Microbiology 03/21/18 11:55 Aerobic Blood Culture - Preliminary Blood Venous No Growth Day 3 Anaerobic Blood Culture - Preliminary No Growth Day 3 03/21/18 12:20 Aerobic Blood Culture - Preliminary Blood Venous No Growth Day 2 Anaerobic Blood Culture - Preliminary No Growth Day 2 03/21/18 16:00 Nasal Screen MRSA (PCR) - Final Nasal Mrsa Not Detected Assess/Plan/Problems-Billing Assessment: Mr. Phelps is a 52 y.o male with a past medical history significant for htn who presented to the ER with difficulty breathing. Found to have a large laryngeal mass and required an emergent tracheotomy. - Patient Problems (1) Laryngeal mass Current Visit: Yes Status: Acute Code(s): J38.7 - OTHER DISEASES OF LARYNX SNOMED Code(s): 07255614 Comment: - s/p Trach - Management per ENT - surgery tomorrow for bx (2) Leucocytosis Current Visit: Yes Status: Acute Code(s): D72.829 - ELEVATED WHITE BLOOD CELL COUNT, UNSPECIFIED SNOMED Code(s): 102792088 Comment: - WBC's - 25.5 today - suspect this is r/t steroid use. - patient remains afebrile, blood cultures are negative, no fever or chills (3) HTN (hypertension) Current Visit: Yes Status: Acute Code(s): I10 - ESSENTIAL (PRIMARY) HYPERTENSION SNOMED Code(s): 55713527 Comment: SBP 121-143 will continue norvasc and metoprolol (4) PAC (premature atrial contraction) Current Visit: Yes Status: Acute Code(s): I49.1 - ATRIAL PREMATURE DEPOLARIZATION SNOMED Code(s): 140134718 Comment: Pac's on the monitor asymptomatic -will check BMP and magnesium (5) DVT prophylaxis Current Visit: Yes Status: Acute Code(s): VOL4632 - SNOMED Code(s): 541540771 Comment: scd's (6) Full code status Current Visit: Yes Status: Acute Code(s): Z78.9 - OTHER SPECIFIED HEALTH STATUS SNOMED Code(s): 439559034 Status and Disposition: inpatient
[2018-03-24] MEDS ORDERED: Buffered Lidocaine 0.9% SYRIN* 5 ML/SYR SYRINGE INTRADERM ONE (17:28)
[2018-03-25] MEDS: Piperacillin/Tazobac ADVAN(*) 3.375 GM in NS 0.9% 100 ML* 100 ML IVPB SCH ×2 (02:04→10:02)
[2018-03-25] MEDS: D5NS 0.9% 1000 ML BAG* 1,000 ML IV SCH (05:15)
[2018-03-25] MEDS ORDERED: Famotidine IV* 10 MG/ML 2 ML (20 mg) IV ONE (06:00)
[2018-03-25 06:37] LABS: Hematocrit 39 % (42-52); Hemoglobin 13.3 g/dl (14.0-18.0); Mean Corpuscular HGB Conc 34 g/dl (31-36); Mean Corpuscular Hemoglobin 33 pg (27-31); Mean Corpuscular Volume 95 fL (80-94); Mean Platelet Volume 7.3 um3 (7.4-10.4); Platelet Count 292 10^3/ul (150-450); Red Blood Count 4.08 10^6/ul (4.00-5.40); Red Cell Distribution Width 12 % (10.5-15)
[2018-03-25 06:46] LABS: INR 1.04 (0.77-1.02)
[2018-03-25 06:54] LABS: EGFR Non-African American 80.6 (>60)
[2018-03-25] MEDS ORDERED: Buffered Lidocaine 0.9% SYRIN* 5 ML/SYR SYRINGE INTRADERM ONE (07:00)
[2018-03-25] MEDS: Metoprolol Tartrate TAB* 50 mg PO SCH ×2 (08:04→22:17)
[2018-03-25] MEDS: Pantoprazole IV* 40 MG IV SCH (08:04)
[2018-03-25] MEDS: methylPREDNISolone SOD 40 MG* 1 ML VIAL IV SCH (08:04)
[2018-03-25] MEDS: amLODIPine TAB* 5 MG PO SCH (08:04)
--- NOTE | 2018-03-25 12:45 | PN ---
Subjective Date of Service: 03/25/18 Interval History: HOSPITALIST PROGRESS NOTE Patient seen and examined at bedside. States he feels much better today, "I have no pain whatsoever and my breathing is fine". Looking forward to surgery later today. Family History: Unchanged from Admission Social History: Unchanged from Admission Past Medical History: Unchanged from Admission Objective Active Medications: Amlodipine Besylate (Norvasc Tab*) 10 mg PO DAILY [facility] Last Admin: 03/25/18 08:04 Dose: 10 mg Gadoteridol (Prohance* (Contrast)) 20 ml IV ONCE ELENA Stop: 03/25/18 13:54 Dextrose/Sodium Chloride (D5ns 0.9% 1000 Ml Bag*) 1,000 mls @ 75 mls/hr IV .PER RATE [facility] Last Admin: 03/25/18 05:15 Dose: 75 mls/hr Lactated Ringer's (Lactated Ringers 1000 Ml Bag*) 1,000 mls @ 125 mls/hr IV PER RATE [facility] Piperacillin Sod/Tazobactam (Sod 3.375 gm/ Sodium Chloride) 100 mls @ 25 mls/ hr IVPB 0200,1000,1800 [facility] Last Admin: 03/25/18 10:02 Dose: 25 mls/hr Methylprednisolone Sodium Succinate (Solu-Medrol 40 Mg) 40 mg IV DAILY [facility] Last Admin: 03/25/18 08:04 Dose: 40 mg Metoprolol Tartrate (Lopressor Tab*) 50 mg PO BID [facility] Last Admin: 03/25/18 08:04 Dose: 50 mg Metoprolol Tartrate (Lopressor Iv*) 5 mg IV Q6H PRN PRN Reason: HEART RATE/PULSE Morphine Sulfate (Morphine Inj ((Syringe))*) 2 mg IV Q2H PRN PRN Reason: PAIN Pantoprazole Sodium (Protonix Iv*) 40 mg IV DAILY [facility] Last Admin: 03/25/18 08:04 Dose: 40 mg Vital Signs - 8 hr 03/25/18 03/25/18 03/25/18 04:50 07:42 08:04 Temperature 99.2 F Pulse Rate 52 69 Respiratory 20 20 Rate Blood Pressure 130/82 143/100 (mmHg) O2 Sat by Pulse 95 Oximetry 03/25/18 08:58 Temperature Pulse Rate Respiratory Rate Blood Pressure (mmHg) O2 Sat by Pulse 95 Oximetry Oxygen Devices in Use Now: Tracheostomy Collar Appearance: Pleasant middle aged gentleman sitting up in bed in NAD. Eyes: No Scleral Icterus Ears/Nose/Mouth/Throat: Mucous Membranes Moist Neck: - - Clean trach in place Respiratory: Symmetrical Chest Expansion and Respiratory Effort, Clear to Auscultation Cardiovascular: RRR - Normal S1 and S2 Result Diagrams: 03/25/18 06:30 03/25/18 06:30 Assess/Plan/Problems-Billing Assessment: Mr. Phelps is a 52 y.o male with a past medical history significant for HTN who presented to the ER with difficulty breathing and stridor, found to have a laryngeal mass and required an emergent tracheostomy. - Patient Problems (1) Laryngeal mass Comment: - With stridor on presentation. - s/p Trach. - Management per ENT. - EKG showed NSR with no ischemic changes, only PACs. Lytes are normal - Patient describes excellent exercise capacity, denies chest pain or dyspnea. RCRI is 0 predcting a 0.4% risk of cardiac complications. Patient is optimized for procedure. (2) Leukocytosis Comment: - Secondary to steroid use. - No signs of infection at this time. (3) HTN (hypertension) Comment: - Patient states his diastolic BP is always difficult to control, usually around 100. - Continue Amlodipine and Metoprolol. (4) DVT prophylaxis Comment: - SCDs (5) Full code status Status and Disposition: Inpatient
[2018-03-25] MEDS ORDERED: fentaNYL* 50 MCG/ML 2 ML VIAL (100 MCG VIAL) ONE (13:30)
[2018-03-25] MEDS ORDERED: Midazolam* 1 MG/ML 5 ML VIAL (5 MG) ONE (13:30)
[2018-03-25] MEDS ORDERED: Dexamethasone IV* 4 MG/ML 1 ML (4 MG) ONE (13:30)
[2018-03-25] MEDS ORDERED: Lidocaine 2% PF * 5 ML VIAL ONE (13:30)
[2018-03-25] MEDS ORDERED: Ondansetron INJ* 2 MG/ML VIAL ONE (13:30)
[2018-03-25] MEDS ORDERED: Propofol* 10 MG/ML 20 ML BTL IV PUSH ONE (13:30)
[2018-03-25] MEDS ORDERED: Lidocain 1% EPI 1:100,000 * 30 ML MDV ONE (13:32)
[2018-03-25] MEDS ORDERED: EPINEPHRINE 1 MG/ML 1 ML VIAL ONE (13:32)
[2018-03-25] MEDS ORDERED: Famotidine IV* 10 MG/ML 2 ML (20 mg) ONE (13:45)
[2018-03-25] MEDS ORDERED: Levalbuterol 0.63MG/3ML NEB* UNIT OF USE INH PRN (14:33)
[2018-03-25] MEDS ORDERED: Naloxone* 0.4 MG/ML 1 ML VIAL IV PRN (14:33)
[2018-03-25] MEDS ORDERED: Ondansetron INJ* 2 MG/ML VIAL IV PRN (14:33)
[2018-03-25] MEDS ORDERED: fentaNYL* 50 MCG/ML 2 ML VIAL (100 MCG VIAL) IV PRN (14:33)
--- NOTE | 2018-03-26 03:47 | OP ---
DATE OF OPERATION: 03/25/18 - ROOM #336 DATE OF : 67 SURGEON: Misha Navarrete MD PRE-OP DIAGNOSIS: Obstructing laryngeal mass requiring tracheostomy. POST-OP DIAGNOSIS: Obstructing laryngeal mass requiring tracheostomy. OPERATIVE PROCEDURE: Microlaryngoscopy with biopsies following a tracheostomy change to an 8DCFN tracheostomy tube. COMPLICATIONS: None. DISPOSITION: Good. SPECIMEN: Left vocal cord biopsies. 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 He has done well from that. I am taking back to the operating room to get the biopsies. DESCRIPTION OF PROCEDURE: He was taken into the operating room, placed in the supine position on the operating table. General anesthesia induced and he was ventilated through his tracheostomy tube. He was turned and draped for the microlaryngoscopy. Tooth guard was placed in his upper teeth and laryngoscope was inserted into the supraglottis and suspended from the suspension system. Microscope was brought in. He had exophytic mass involving the posterior aspect of the left vocal cord. It was rock hard and clearly deeply infiltrated involving the region of the left arytenoid. Multiple biopsies were taken. Panendoscopy of his oropharynx, hypopharynx, postcricoid region, piriform sinuses did not show any further lesions. Anesthesia was added with topicalized lidocaine with epinephrine. The laryngoscope was removed as was the tooth guard. I cut the sutures on his previous trach, removed it and replaced it with the stated 8DCFN tracheostomy tube without difficulty. The patient tolerated this well, no complications, transferred to the recovery room in stable condition. [id number]/[facility] #: [id number] [facility]
[2018-03-26] MEDS: Metoprolol Tartrate TAB* 50 mg PO SCH ×2 (09:47→21:33)
[2018-03-26] MEDS: amLODIPine TAB* 5 MG PO SCH (09:47)
[2018-03-26] MEDS: Pantoprazole IV* 40 MG IV SCH (09:48)
--- NOTE | 2018-03-26 18:45 | PN ---
Subjective Date of Service: 03/26/18 Interval History: Pt feeling better, tolerating liquids and foods he says. Coughing up sputum so does not want to trial the Passey-Trell valve yet. In good spirits and appreciative of care. No chest pain, abdominal pain, fevers, chills, N/V. Manual Blood pressures lower than automatic cuff checks. Family History: Unchanged from Admission Social History: Unchanged from Admission Past Medical History: Unchanged from Admission Objective Active Medications: Amlodipine Besylate (Norvasc Tab*) 10 mg PO DAILY [facility] Last Admin: 03/26/18 09:47 Dose: 10 mg Metoprolol Tartrate (Lopressor Tab*) 50 mg PO BID [facility] Last Admin: 03/26/18 09:47 Dose: 50 mg Metoprolol Tartrate (Lopressor Iv*) 5 mg IV Q6H PRN PRN Reason: HEART RATE/PULSE Morphine Sulfate (Morphine Inj ((Syringe))*) 2 mg IV Q2H PRN PRN Reason: PAIN Pantoprazole Sodium (Protonix Iv*) 40 mg IV DAILY [facility] Last Admin: 03/26/18 09:48 Dose: 40 mg Vital Signs - 8 hr 03/26/18 03/26/18 11:58 15:26 Temperature 98.2 F 98.2 F Pulse Rate 58 67 Respiratory 18 16 Rate Blood Pressure 140/95 140/94 (mmHg) O2 Sat by Pulse 96 99 Oximetry Oxygen Devices in Use Now: None Appearance: NAD, walking Eyes: No Scleral Icterus, PERRLA Ears/Nose/Mouth/Throat: NL Teeth, Lips, Gums Neck: - - s/p tracheostomy. Respiratory: Symmetrical Chest Expansion and Respiratory Effort, Clear to Auscultation, - - some referred upper airway sounds Cardiovascular: NL Sounds; No Murmurs; No JVD, RRR Abdominal: NL Sounds; No Tenderness; No Distention, No Hepatosplenomegaly Extremities: No Edema, No Clubbing, Cyanosis Skin: No Rash or Ulcers Neurological: Alert and Oriented x 3, NL Sensation, NL Muscle Strength and Tone Lines/Tubes/Other Access: Clean, Dry and Intact Tracheostomy Nutrition: Taking PO's Result Diagrams: 03/25/18 06:30 03/25/18 06:30 Additional Lab and Data: Microbiology and Other Data: Microbiology 03/21/18 12:20 Blood Venous Aerobic Blood Culture - Final No Growth Day 5 03/21/18 12:20 Blood Venous Anaerobic Blood Culture - Final No Growth Day 5 03/21/18 11:55 Blood Venous Aerobic Blood Culture - Final No Growth Day 5 03/21/18 11:55 Blood Venous Anaerobic Blood Culture - Final No Growth Day 5 03/21/18 16:00 Nasal Nasal Screen MRSA (PCR) - Final Mrsa Not Detected Assess/Plan/Problems-Billing Assessment: Mr. Phelps is a 52 y.o male with a past medical history significant for HTN who presented to the ER with difficulty breathing and stridor, found to have a laryngeal mass and required an emergent tracheostomy. s/p biopsy 03/25. - Patient Problems (1) Laryngeal mass Current Visit: Yes Status: Acute Code(s): J38.7 - OTHER DISEASES OF LARYNX SNOMED Code(s): 84504408 Comment: - With stridor on presentation. - s/p emergent Trach. - Management per ENT. - f/u biopsy pathology. - trach teaching continues and he seems to be very motivated (2) Hyperthyroidism Current Visit: Yes Status: Acute Code(s): E05.90 - THYROTOXICOSIS, UNSP WITHOUT THYROTOXIC CRISIS OR STORM SNOMED Code(s): 14254607 Comment: TSH 0.15. Mass adjacent to thyroid but MRI did not detect any thyroid abnormalities. Free T4 and Free T3 in AM. (3) DVT prophylaxis Current Visit: Yes Status: Acute Code(s): DJT3352 - SNOMED Code(s): 307564891 Comment: - SCDs (4) HTN (hypertension) Current Visit: Yes Status: Acute Code(s): I10 - ESSENTIAL (PRIMARY) HYPERTENSION SNOMED Code(s): 87465835 Comment: - Patient states his diastolic BP is always difficult to control, usually around 100. - Continue Amlodipine 10mg daily and Metoprolol 50mg po BID - Manual checks have diastolic around 80 when manual cuffs have read 105. (5) Full code status Current Visit: Yes Status: Acute Code(s): Z78.9 - OTHER SPECIFIED HEALTH STATUS SNOMED Code(s): 950323693 (6) Leukocytosis Current Visit: Yes Status: Acute Code(s): D72.829 - ELEVATED WHITE BLOOD CELL COUNT, UNSPECIFIED SNOMED Code(s): 646574717 Comment: - Secondary to steroid use. - No signs of infection at this time. Status and Disposition: Inpatient
[2018-03-27] MEDS ORDERED: Acetaminophen TAB* 325 MG ONE (06:28)
[2018-03-27] MEDS: Acetaminophen TAB* 325 MG PO PRN ×3 (06:29→19:34)
[2018-03-27] MEDS: Metoprolol Tartrate TAB* 50 mg PO SCH ×2 (10:45→20:35)
[2018-03-27] MEDS: amLODIPine TAB* 5 MG PO SCH (10:45)
[2018-03-27] MEDS: Pantoprazole IV* 40 MG IV SCH (10:45)
--- NOTE | 2018-03-27 17:35 | PN ---
Subjective Date of Service: 03/27/18 Interval History: Pt is much more discouraged today as he developed a right posterior headache 3- which he associates with the exertion of coughing up his congestion. improved with tylenol administration. Suctioned twice. Trach care, suctioning machine, other supplies and VNS needed to be set up for discharge but unlikely on holiday weekend. Pt does attest that he has (just yesterday), [employer] insurance with a pretty good plan, initiated process back in December. 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 Family History: Unchanged from Admission Social History: Unchanged from Admission Past Medical History: Unchanged from Admission Objective Active Medications: Acetaminophen (Tylenol Tab*) 650 mg PO Q4H PRN PRN Reason: FEVER/PAIN Last Admin: 03/27/18 13:04 Dose: 650 mg Amlodipine Besylate (Norvasc Tab*) 10 mg PO DAILY [facility] Last Admin: 03/27/18 10:45 Dose: 10 mg Metoprolol Tartrate (Lopressor Tab*) 50 mg PO BID [facility] Last Admin: 03/27/18 10:45 Dose: 50 mg Metoprolol Tartrate (Lopressor Iv*) 5 mg IV Q6H PRN PRN Reason: HEART RATE/PULSE Morphine Sulfate (Morphine Inj ((Syringe))*) 2 mg IV Q2H PRN PRN Reason: PAIN Pantoprazole Sodium (Protonix Iv*) 40 mg IV DAILY [facility] Last Admin: 03/27/18 10:45 Dose: 40 mg Vital Signs - 8 hr 03/27/18 15:40 Temperature 97.5 F Pulse Rate 68 Respiratory 16 Rate Blood Pressure 130/78 (mmHg) O2 Sat by Pulse 95 Oximetry Oxygen Devices in Use Now: None Appearance: NAD Eyes: No Scleral Icterus Neck: - - s/p trach. Respiratory: Symmetrical Chest Expansion and Respiratory Effort, - - referred airway. Cardiovascular: NL Sounds; No Murmurs; No JVD, RRR Abdominal: NL Sounds; No Tenderness; No Distention, No Hepatosplenomegaly Extremities: No Edema Skin: No Rash or Ulcers, No Nodules or Sclerosis Neurological: Alert and Oriented x 3, NL Sensation, NL Muscle Strength and Tone Lines/Tubes/Other Access: Clean, Dry and Intact Tracheostomy Result Diagrams: 03/25/18 06:30 08/31/18 06:30 Additional Lab and Data: Laboratory Results - last 24 hr 03/27/18 05:18 Free T4 1.50 H Free T3 3.50 Thyroid Peroxidase Ab 0.94 Microbiology and Other Data: Microbiology 03/21/18 12:20 Blood Venous Aerobic Blood Culture - Final No Growth Day 5 03/21/18 12:20 Blood Venous Anaerobic Blood Culture - Final No Growth Day 5 03/21/18 11:55 Blood Venous Aerobic Blood Culture - Final No Growth Day 5 03/21/18 11:55 Blood Venous Anaerobic Blood Culture - Final No Growth Day 5 03/21/18 16:00 Nasal Nasal Screen MRSA (PCR) - Final Mrsa Not Detected Assess/Plan/Problems-Billing Assessment: Mr. Phelps is a 52 y.o male with a past medical history significant for HTN who presented to the ER with difficulty breathing and stridor, found to have a laryngeal mass and required an emergent tracheostomy. s/p biopsy(pathology results pending) and fenestrated trach 03/25. concern for potential squamous cell carcinoma per Dr. Navarrete. - Patient Problems (1) Laryngeal mass Current Visit: Yes Status: Acute Code(s): J38.7 - OTHER DISEASES OF LARYNX SNOMED Code(s): 75944560 Comment: - With stridor on presentation. - s/p emergent Trach. - Management per ENT. Talked to Dr. Navarrete today who states patient can be discharged as soon as he has trach equipement and suctioning set up in his home. Being the middle of a holiday weekend, this may not actually happen until or Wednesday. Discussed and initiated paperwork with Qian Chris [employer]. - f/u biopsy pathology. - trach teaching continues and he seems to be very motivated (2) Hyperthyroidism Current Visit: Yes Status: Acute Code(s): E05.90 - THYROTOXICOSIS, UNSP WITHOUT THYROTOXIC CRISIS OR STORM SNOMED Code(s): 08819752 Comment: TSH 0.15. Mass adjacent to thyroid but MRI did not detect any thyroid abnormalities. Free T4 elevated and Free T3 normal. likely hyperthyroid (T4 toxicosis) with possible T3 conversion inhibited in setting of his likely maligancy. (3) DVT prophylaxis Current Visit: Yes Status: Acute Code(s): OYC5757 - SNOMED Code(s): 596122966 Comment: - SCDs (4) HTN (hypertension) Current Visit: Yes Status: Acute Code(s): I10 - ESSENTIAL (PRIMARY) HYPERTENSION SNOMED Code(s): 93371769 Comment: - Continue Amlodipine 10mg daily and Metoprolol 50mg po BID good control (5) Full code status Current Visit: Yes Status: Acute Code(s): Z78.9 - OTHER SPECIFIED HEALTH STATUS SNOMED Code(s): 477569314 (6) Leukocytosis Current Visit: Yes Status: Acute Code(s): D72.829 - ELEVATED WHITE BLOOD CELL COUNT, UNSPECIFIED SNOMED Code(s): 097214841 Comment: - Secondary to steroid use. - No signs of infection at this time. Status and Disposition: Inpatient, needs trach/suctioning equipment set up before can be discharged.
[2018-03-28] MEDS: Acetaminophen TAB* 325 MG PO PRN ×5 (01:13→23:20)
[2018-03-28] MEDS: Pantoprazole IV* 40 MG IV SCH (07:21)
[2018-03-28] MEDS: amLODIPine TAB* 5 MG PO SCH (07:21)
[2018-03-28] MEDS: Metoprolol Tartrate TAB* 50 mg PO SCH ×2 (07:21→20:56)
[2018-03-28] MEDS ORDERED: Al Hydrox/Mg Hydrox/Simet LIQ* 30 ML UDC PO PRN (10:31)
--- NOTE | 2018-03-28 14:34 | PN ---
Subjective Date of Service: 03/28/18 Interval History: Patient was seen at bedside earlier today. I was called earlier because patient was angry about his worsening acid reflux, that he believes is caused by his BP meds. He denied any pain, trouble breathing, dyspnea or chocking sensation. Tolerating diet, no nausea or vomiting. I had a long discussion with patient and his daughter regarding his current meds. He was assured his BP meds are the same ones he had been, or should have been taking at home. He is also covered with PPI, IV Protonix daily. I also offered Maalox or other antacids for symptomatic relief. Patient gradually expressed unsatisfactory remarks about "the way we care for him". He was increasingly agitated, refused to respond to any more questions, wanted to be seen in the future by Dr. Ragsdale or other MDs only. He and his daughter were assured about stable medical condition prior to leaving the room. His vitals reviewed and tracheostomy care discussed with his nurse. I also discussed d/c plans with his rn case management, Eulalia, who informed me that [facility] paperwork is ready to be submitted pending on insurance coverage/ information, hopefully by tomorrow. Pathology report still pending. Family History: Unchanged from Admission Social History: Unchanged from Admission Past Medical History: Unchanged from Admission Objective Active Medications: Acetaminophen (Tylenol Tab*) 650 mg PO Q4H PRN PRN Reason: FEVER/PAIN Last Admin: 03/28/18 13:00 Dose: 650 mg Al Hydrox/Mg Hydrox/Simethicone (Maalox Plus*) 30 ml PO Q6H PRN PRN Reason: HEARTBURN Last Admin: 03/28/18 10:51 Dose: 30 ml Amlodipine Besylate (Norvasc Tab*) 10 mg PO DAILY [facility] Last Admin: 03/28/18 07:21 Dose: 10 mg Metoprolol Tartrate (Lopressor Tab*) 50 mg PO BID [facility] Last Admin: 03/28/18 07:21 Dose: 50 mg Metoprolol Tartrate (Lopressor Iv*) 5 mg IV Q6H PRN PRN Reason: HEART RATE/PULSE Morphine Sulfate (Morphine Inj ((Syringe))*) 2 mg IV Q2H PRN PRN Reason: PAIN Pantoprazole Sodium (Protonix Iv*) 40 mg IV DAILY [facility] Last Admin: 03/28/18 07:21 Dose: 40 mg Vital Signs - 8 hr 03/28/18 03/28/18 03/28/18 07:16 07:21 11:25 Temperature 98.0 F 97.5 F Pulse Rate 64 76 Respiratory 18 18 20 Rate Blood Pressure 131/78 128/83 (mmHg) O2 Sat by Pulse 95 96 Oximetry Oxygen Devices in Use Now: None Appearance: Appears comfortable and in NAD. Patient refused exam at this time Result Diagrams: 03/25/18 06:30 03/25/18 06:30 Additional Lab and Data: Laboratory Results - last 24 hr 03/27/18 05:18 Free T4 1.50 H Free T3 3.50 Thyroid Peroxidase Ab 0.94 Microbiology and Other Data: . Diagnostic Imaging: . EKG Data: . Assess/Plan/Problems-Billing Assessment: Mr. Phelps is a 52 y.o male with a past medical history significant for HTN who presented to the ER with difficulty breathing and stridor, found to have a laryngeal mass and required an emergent tracheostomy. s/p biopsy(pathology results pending) and fenestrated trach 03/25. concern for potential squamous cell carcinoma per Dr. Navarrete. - Patient Problems (1) Laryngeal mass Current Visit: Yes Status: Acute Comment: - With stridor on presentation. - s/p emergent Trach. - Management per ENT. Patient is clinically stable. Spoke with rn case management, Eulalia Chris, who sent paperwork to [facility], awaiting insurance approval/coverage , hopefully to be ready for discharge to home by tomorrow or Wednesday - f/u biopsy pathology. (2) HTN (hypertension) Current Visit: Yes Status: Acute Comment: - Continue Amlodipine 10mg daily and Metoprolol 50mg po BID good control (3) Hyperthyroidism Current Visit: Yes Status: Acute Comment: - TSH 0.15. Mass adjacent to thyroid but MRI did not detect any thyroid abnormalities. - Free T4 elevated and Free T3 normal. - likely hyperthyroid (T4 toxicosis) with possible T3 conversion inhibited in setting of his likely maligancy. (4) DVT prophylaxis Current Visit: Yes Status: Acute Comment: - SCDs (5) Full code status Current Visit: Yes Status: Acute Status and Disposition: Inpatient, needs trach/suctioning equipment set up before can be discharged to home.
[2018-03-29] MEDS: Acetaminophen TAB* 325 MG PO PRN ×5 (03:22→21:01)
--- NOTE | 2018-03-29 08:01 | PN ---
Subjective Date of Service: 03/29/18 Interval History: Pt is feeling ok but is adamant that his antihypertensives have led to the development of GERD which he believes has subsequently led to the development of the laryngeal mass/probable malignancy. He states his breathing is fine. He has no pain. Family History: Unchanged from Admission Social History: Unchanged from Admission Past Medical History: Unchanged from Admission Objective Active Medications: Acetaminophen (Tylenol Tab*) 650 mg PO Q4H PRN PRN Reason: FEVER/PAIN Last Admin: 03/29/18 07:22 Dose: 650 mg Al Hydrox/Mg Hydrox/Simethicone (Maalox Plus*) 30 ml PO Q6H PRN PRN Reason: HEARTBURN Last Admin: 03/28/18 10:51 Dose: 30 ml Amlodipine Besylate (Norvasc Tab*) 10 mg PO DAILY [facility] Last Admin: 03/28/18 07:21 Dose: 10 mg Metoprolol Tartrate (Lopressor Tab*) 50 mg PO BID [facility] Last Admin: 03/28/18 20:56 Dose: Not Given Metoprolol Tartrate (Lopressor Iv*) 5 mg IV Q6H PRN PRN Reason: HEART RATE/PULSE Pantoprazole Sodium (Protonix Iv*) 40 mg IV DAILY [facility] Last Admin: 03/28/18 07:21 Dose: 40 mg Vital Signs - 8 hr 03/29/18 03/29/18 03:16 07:30 Temperature 98.5 F 97.5 F Pulse Rate 72 79 Respiratory 16 16 Rate Blood Pressure 135/87 140/90 (mmHg) O2 Sat by Pulse 99 96 Oximetry Oxygen Devices in Use Now: None, Other - tracheostomy in place Appearance: Middle aged male sitting up in bed, NAD Eyes: No Scleral Icterus Ears/Nose/Mouth/Throat: Mucous Membranes Moist Respiratory: Symmetrical Chest Expansion and Respiratory Effort, Clear to Auscultation Cardiovascular: NL Sounds; No Murmurs; No JVD, RRR, No Edema Abdominal: NL Sounds; No Tenderness; No Distention Extremities: No Clubbing, Cyanosis Skin: No Nodules or Sclerosis Neurological: Alert and Oriented x 3 Result Diagrams: 03/25/18 06:30 03/25/18 06:30 Additional Lab and Data: Laboratory Results - last 24 hr 03/27/18 05:18 Free T4 1.50 H Free T3 3.50 Thyroid Peroxidase Ab 0.94 Microbiology and Other Data: . Diagnostic Imaging: . EKG Data: . Assess/Plan/Problems-Billing Mr. Phelps is a 52 y.o male with a past medical history significant for HTN who presented to the ER with difficulty breathing and stridor, found to have a laryngeal mass and required an emergent tracheostomy. - Patient Problems (1) Laryngeal mass Current Visit: Yes Status: Acute Code(s): J38.7 - OTHER DISEASES OF LARYNX SNOMED Code(s): 00584524 Comment: Pt s/p tracheostomy and laryngeal mass biopsy. Pathology pending at this time. Will ask for oncology consultation. Pt believes his GERD has led to the development of the probable cancer and he thinks his antihypertensives have caused the GERD. Will change his antihypertensives and monitor for symptoms. Pt is very angry about this "realization" as he states he was on the antihypertensives for 5 years. Plan to order needed equipment today and possibly home today or tomorrow. (2) Hyperthyroidism Current Visit: Yes Status: Acute Code(s): E05.90 - THYROTOXICOSIS, UNSP WITHOUT THYROTOXIC CRISIS OR STORM SNOMED Code(s): 12158082 Comment: TSH/FreeT4 lab values noted. Thyrotropin receptor Ab and thyroid stimulating immunoglobulin pending. (3) HTN (hypertension) Current Visit: Yes Status: Acute Code(s): I10 - ESSENTIAL (PRIMARY) HYPERTENSION SNOMED Code(s): 36551175 Comment: Stop metoprolol and amlodipine as pt will not take these medications. Start lisinopril 20mg daily. Monitor BP. (4) DVT prophylaxis Current Visit: Yes Status: Acute Code(s): FOK7617 - SNOMED Code(s): 798486941 Comment: SCDs/ambulation (5) Full code status Current Visit: Yes Status: Acute Code(s): Z78.9 - OTHER SPECIFIED HEALTH STATUS SNOMED Code(s): 410848344 Status and Disposition: .
[2018-03-29] MEDS: Lisinopril TAB* 10 MG PO SCH (08:19)
[2018-03-29] MEDS: Pantoprazole IV* 40 MG IV SCH (08:25)
[2018-03-29] MEDS: guaiFENesin ER TAB 600 MG PO SCH (21:01)
[2018-03-30] MEDS: Acetaminophen TAB* 325 MG PO PRN ×5 (01:00→19:41)
[2018-03-30] MEDS ORDERED: Iohexol 300* (CONTRAST) 10 ML SDV IV ONE (07:49)
[2018-03-30] MEDS: Lisinopril TAB* 10 MG PO SCH (10:22)
[2018-03-30] MEDS: Pantoprazole IV* 40 MG IV SCH (10:22)
[2018-03-30] MEDS: guaiFENesin ER TAB 600 MG PO SCH ×2 (10:22→21:14)
--- NOTE | 2018-03-30 12:11 | RAD ---
HISTORY: laryngeal cancer COMPARISONS: CT of the neck dated March 21, 2018 TECHNIQUE: Multiple contiguous axial CT scans of the chest were obtained with intravenous contrast. Coronal and sagittal multiplanar reformations are also submitted for review. FINDINGS: Evaluation is limited secondary to patient motion artifact. NECK AND THYROID: A tracheostomy tube is noted. Again noted is a mass centered within the left thyroid cartilage and larynx. CHEST WALL: There is no lower cervical, axillary, or supraclavicular lymphadenopathy by size criteria. HEART AND PERICARDIUM: The heart is unremarkable. AORTA AND PULMONARY VASCULATURE: The aorta and pulmonary vasculature are normal. MEDIASTINUM: There is no mediastinal lymphadenopathy by size criteria. LEIGH: There is no hilar lymphadenopathy by size criteria. AIRWAY AND ESOPHAGUS: The airway is unremarkable, without endobronchial filling defect. The esophagus is grossly normal. LUNG PARENCHYMA: Evaluation of the lungs is somewhat limited by patient breathing motion artifact. Within the limitations of the study, the lungs are clear. PLEURA: No pleural abnormalities are noted. UPPER ABDOMEN: The upper abdomen is unremarkable. BONES AND SOFT TISSUES: Mild degenerative changes are noted. OTHER: None. IMPRESSION: 1. 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 2. OTHERWISE UNREMARKABLE CT OF THE CHEST.
--- NOTE | 2018-03-30 17:24 | PN ---
Subjective Date of Service: 03/30/18 Interval History: Pt convinced his metoprolol is causing his GERD. CT chest w/o other acute finding Dr. Sosa of Radiation Oncology consulted. Still waiting on trach/suctioning supplies to be set up. Family History: Unchanged from Admission Social History: Unchanged from Admission Past Medical History: Unchanged from Admission Objective Active Medications: Acetaminophen (Tylenol Tab*) 650 mg PO Q4H PRN PRN Reason: FEVER/PAIN Last Admin: 03/30/18 15:35 Dose: 650 mg Al Hydrox/Mg Hydrox/Simethicone (Maalox Plus*) 30 ml PO Q6H PRN PRN Reason: HEARTBURN Last Admin: 03/28/18 10:51 Dose: 30 ml Guaifenesin (Mucinex*) 600 mg PO BID [facility] Last Admin: 03/30/18 10:22 Dose: 600 mg Lisinopril (Prinivil Tab*) 20 mg PO DAILY [facility] Last Admin: 03/30/18 10:22 Dose: 20 mg Pantoprazole Sodium (Protonix Iv*) 40 mg IV DAILY [facility] Last Admin: 03/30/18 10:22 Dose: 40 mg Vital Signs - 8 hr 03/30/18 11:35 Temperature 98.4 F Pulse Rate 94 Respiratory 17 Rate Blood Pressure 109/74 (mmHg) O2 Sat by Pulse 99 Oximetry Oxygen Devices in Use Now: Large Volume Nebulizer Appearance: NAD Eyes: No Scleral Icterus, PERRLA Ears/Nose/Mouth/Throat: NL Teeth, Lips, Gums, Mucous Membranes Moist Neck: - - s/p trach. Respiratory: Symmetrical Chest Expansion and Respiratory Effort, - - no rhonchi or rales; referred upper air way expiratory sounds Abdominal: NL Sounds; No Tenderness; No Distention, No Hepatosplenomegaly Extremities: No Edema, No Clubbing, Cyanosis Skin: No Rash or Ulcers, No Nodules or Sclerosis Neurological: Alert and Oriented x 3 Lines/Tubes/Other Access: Clean, Dry and Intact Tracheostomy Nutrition: Taking PO's Result Diagrams: 03/25/18 06:30 03/25/18 06:30 Additional Lab and Data: Laboratory Results - last 24 hr 03/27/18 05:18 TSH Receptor Ab <1.00 Microbiology and Other Data: Microbiology 03/21/18 12:20 Blood Venous Aerobic Blood Culture - Final No Growth Day 5 03/21/18 12:20 Blood Venous Anaerobic Blood Culture - Final No Growth Day 5 03/21/18 11:55 Blood Venous Aerobic Blood Culture - Final No Growth Day 5 03/21/18 11:55 Blood Venous Anaerobic Blood Culture - Final No Growth Day 5 03/21/18 16:00 Nasal Nasal Screen MRSA (PCR) - Final Mrsa Not Detected Diagnostic Imaging: . EKG Data: . Assess/Plan/Problems-Billing Mr. Phelps is a 52 y.o male with a past medical history significant for HTN who presented to the ER with difficulty breathing and stridor, found to have a laryngeal mass requiring an emergent tracheostomy. Squamous Cell Carcinoma. Awaiting trach/suction equipment home delivery. - Patient Problems (1) Laryngeal mass Current Visit: Yes Status: Acute Code(s): J38.7 - OTHER DISEASES OF LARYNX SNOMED Code(s): 63931828 Comment: Pt s/p tracheostomy and laryngeal mass biopsy. Pathology with squamous cell carcinoma. Oncology consulted. Pt believes his GERD has led to the development of the probable cancer and he thinks his antihypertensives have caused the GERD. Radiation Oncology consult with Dr. Sosa. Still waiting on trach/suction supplies to be delivered. (2) Hyperthyroidism Current Visit: Yes Status: Acute Code(s): E05.90 - THYROTOXICOSIS, UNSP WITHOUT THYROTOXIC CRISIS OR STORM SNOMED Code(s): 00131156 Comment: TSH/FreeT4 lab values noted. Thyrotropin receptor Ab wnl and thyroid stimulating immunoglobulin pending. (3) DVT prophylaxis Current Visit: Yes Status: Acute Code(s): CQC3935 - SNOMED Code(s): 729040508 Comment: SCDs/ambulation (4) HTN (hypertension) Current Visit: Yes Status: Acute Code(s): I10 - ESSENTIAL (PRIMARY) HYPERTENSION SNOMED Code(s): 33622791 Comment: Continue lisinopril 20mg daily. Monitor BP. good control so far. (5) Full code status Current Visit: Yes Status: Acute Code(s): Z78.9 - OTHER SPECIFIED HEALTH STATUS SNOMED Code(s): 105490891 (6) Leukocytosis Current Visit: Yes Status: Acute Code(s): D72.829 - ELEVATED WHITE BLOOD CELL COUNT, UNSPECIFIED SNOMED Code(s): 230459394 Comment: - Secondary to steroid use. - No signs of infection at this time. Status and Disposition: .
--- NOTE | 2018-03-30 21:19 | CONS ---
CONSULTATION REPORT: DATE OF CONSULT: 03/30/18 HISTORY OF PRESENT ILLNESS: I swung by the patient to talk to him about the biopsy results, which showed squamous cell carcinoma. It will never know the cause, but in a nonsmoker with severe GERD it is possible that laryngopharyngeal reflux that caused this because I have seen that before. That might also explain why it is such a posterior lesion involving the arytenoids. In any case, the treatment options are going to be the same no matter what the cause. At this point, he states it as a T4N0M0 squamous cell carcinoma. He apparently had a chest CT scan today and by his report it is negative. I have not had a chance to check on that. Dr. Mccord has talked to him. His treatment options are going to be radiation with either surgery or chemotherapy. At this point he would not need all 3, but ultimately that would be the case. We had a long discussion about the pros and cons of the different treatment modalities. The only surgery I could offer him is a total laryngectomy. There is no way to perform a laryngeal conservation procedure given the extent of his disease. This is actually an excellent option in terms of long-term function, although it would leave him with an end stoma. It would certainly allow him to breathe easily, he would be able to get the tracheostomy out. It would preserve his swallowing function, which is really good right now and he would be able to talk ultimately with a voice prosthesis put in. That is a big decision to make for the patient. The other option of chemotherapy and radiation therapy is an organ preservation procedure, but just preserving the organ does not mean it is ever going to function again. It is unlikely but possible after this treatment he would be able to get the tracheostomy out, but there appears to be so much scarring and tumor within the arytenoid joints that the vocal cords may never open up again and with added swelling, it might not ever allow him to get decannulated. He is also having difficulty with his voice because of the extent of tumor and that might not change either. Theoretically that could get worse as well. Right now, his swallowing function is excellent as I said and it is unlikely but possible that the swallowing would get worse; it certainly will temporarily in the middle of the therapy and he should probably have a PEG tube placed for that. The recovery from that treatment is about a year and that is when we will know how he is doing. I unfortunately have had to perform total laryngectomies on people who appear to be cancer free, but their larynx is not functioning and the quality of life will be better after the total laryngectomy. In either case, cure is probably about the same and there is a range of cure rates and I used 50:50 descriptively for the patient today. Dr. Sosa has not seen him yet and will do so. He will probably need a PET scan at some point prior to treatment. After meeting with the patient, I called his daughter and had a discussion with her about everything. [id number]/[facility] #: [id number] MTDCaro
[2018-03-31] MEDS: Acetaminophen TAB* 325 MG PO PRN ×6 (00:06→21:29)
[2018-03-31] MEDS: Lisinopril TAB* 10 MG PO SCH (09:07)
[2018-03-31] MEDS: guaiFENesin ER TAB 600 MG PO SCH ×3 (09:08→22:08)
[2018-03-31] MEDS: Pantoprazole IV* 40 MG IV SCH (09:08)
--- NOTE | 2018-03-31 17:17 | PN ---
Subjective Date of Service: 03/31/18 Interval History: Prodigous amounts of phlegm last night. no acid reflux. still waiting on trach/supplies setup as barrier to discharge. BP under excellent control on the lisinopril. Pt attests to no drinking for the last 2 months. Used to have 6-7 beers not infrequently but not daily. Family History: Unchanged from Admission Social History: Unchanged from Admission Past Medical History: Unchanged from Admission Objective Active Medications: Acetaminophen (Tylenol Tab*) 650 mg PO Q4H PRN PRN Reason: FEVER/PAIN Last Admin: 03/31/18 17:14 Dose: 650 mg Al Hydrox/Mg Hydrox/Simethicone (Maalox Plus*) 30 ml PO Q6H PRN PRN Reason: HEARTBURN Last Admin: 03/28/18 10:51 Dose: 30 ml Guaifenesin (Mucinex*) 600 mg PO BID [facility] Last Admin: 03/31/18 09:08 Dose: Not Given Lisinopril (Prinivil Tab*) 20 mg PO DAILY [facility] Last Admin: 03/31/18 09:07 Dose: 20 mg Pantoprazole Sodium (Protonix Iv*) 40 mg IV DAILY [facility] Last Admin: 03/31/18 09:08 Dose: 40 mg Vital Signs - 8 hr 03/31/18 03/31/18 03/31/18 11:41 15:19 17:00 Temperature 98.1 F 97.9 F Pulse Rate 102 92 Respiratory 18 16 Rate Blood Pressure 120/73 107/70 (mmHg) O2 Sat by Pulse 98 97 97 Oximetry Oxygen Devices in Use Now: None Appearance: NAD. Eyes: No Scleral Icterus Ears/Nose/Mouth/Throat: Mucous Membranes Moist Neck: - - s/p trach Cardiovascular: NL Sounds; No Murmurs; No JVD, RRR Abdominal: NL Sounds; No Tenderness; No Distention, No Hepatosplenomegaly Extremities: No Edema Skin: No Rash or Ulcers Neurological: Alert and Oriented x 3, NL Sensation, NL Muscle Strength and Tone Lines/Tubes/Other Access: Clean, Dry and Intact Tracheostomy Nutrition: Taking PO's Result Diagrams: 03/25/18 06:30 03/25/18 06:30 Additional Lab and Data: Laboratory Results - last 24 hr 03/27/18 05:18 Thyroid Stim Immunoglob <1.0 Microbiology and Other Data: Microbiology 03/21/18 12:20 Blood Venous Aerobic Blood Culture - Final No Growth Day 5 03/21/18 12:20 Blood Venous Anaerobic Blood Culture - Final No Growth Day 5 03/21/18 11:55 Blood Venous Aerobic Blood Culture - Final No Growth Day 5 03/21/18 11:55 Blood Venous Anaerobic Blood Culture - Final No Growth Day 5 03/21/18 16:00 Nasal Nasal Screen MRSA (PCR) - Final Mrsa Not Detected Assess/Plan/Problems-Billing Mr. Phelps is a 52 y.o male with a past medical history significant for HTN who presented to the ER with difficulty breathing and stridor, found to have a laryngeal mass requiring an emergent tracheostomy. Squamous Cell Carcinoma. Awaiting trach/suction equipment home delivery. - Patient Problems (1) Laryngeal mass Current Visit: Yes Status: Acute Code(s): J38.7 - OTHER DISEASES OF LARYNX SNOMED Code(s): 64983400 Comment: Pt s/p tracheostomy and laryngeal mass biopsy. Pathology with squamous cell carcinoma. Oncology consulted. Pt believes his GERD has led to the development of the probable cancer and he thinks his antihypertensives have caused the GERD. Appreciate Radiation Oncology recs. Still waiting on trach/suction supplier to be arranged. [employer] never returned any of case managements calls. [facility] is the 3rd choice. He describes owning [address] home property. (2) Hyperthyroidism Current Visit: Yes Status: Acute Code(s): E05.90 - THYROTOXICOSIS, UNSP WITHOUT THYROTOXIC CRISIS OR STORM SNOMED Code(s): 12103303 Comment: TSH/FreeT4 lab values noted. Thyrotropin receptor Ab wnl and thyroid stimulating immunoglobulin wnl (3) DVT prophylaxis Current Visit: Yes Status: Acute Code(s): SIC8708 - SNOMED Code(s): 228479459 Comment: SCDs/ambulation (4) HTN (hypertension) Current Visit: Yes Status: Acute Code(s): I10 - ESSENTIAL (PRIMARY) HYPERTENSION SNOMED Code(s): 83173925 Comment: Continue lisinopril 20mg daily. Monitor BP. good control so far. (5) Full code status Current Visit: Yes Status: Acute Code(s): Z78.9 - OTHER SPECIFIED HEALTH STATUS SNOMED Code(s): 928917271 Status and Disposition: .
[2018-04-01] MEDS: Acetaminophen TAB* 325 MG PO PRN ×5 (02:08→21:30)
--- NOTE | 2018-04-01 03:33 | RADMED ---
CC: Dr. Navarrete; Dr. Mccord; Dr. Bo Sosa; Dr. Villalba.* RADIATION ONCOLOGY INPATIENT CONSULTATION NOTE: DATE OF SERVICE: 03/30/18 - ROOM #[id number] REFERRING PHYSICIAN: Dr. Arnoldo Navarrete. DIAGNOSIS: Larynx squamous cell carcinoma T4, N0, M0 stage [id number], AJCC (8) stage AGUSTIN. PERFORMANCE STATUS: ECOG 1. HISTORY OF PRESENT ILLNESS: Demarco Phelps is a 52-year-old gentleman who noted hoarseness in his voice over approximately 6 months timeframe. He initially attributed this to reflux, a problem he has had for an extended period of time. Approximately 1 month ago, his neck swelled and he underwent a course of antibiotics and steroids with some improvement. He had further subsequent worsening of his symptoms, and difficulty breathing, and was evaluated through the emergency room. On 03/21/18, he underwent CT scan of the soft tissue neck which identifies extensive destructive soft tissue mass centered around the left side of the larynx with subglottic extension. Because of laryngeal obstruction, he underwent urgent tracheostomy which he tolerated well. On , he underwent MRI of the neck which further characterized the laryngeal mass with extension through the thyroid cartilage and likely into the soft tissues of the neck. Neither his CT nor MRI suggest pathologically enlarged regional lymph nodes and chest CT from 03/30/18 shows no evidence for distant metastatic disease. On 03/25/18, he underwent microlaryngoscopy with biopsy, pathology confirming squamous cell carcinoma moderately differentiated. He is referred for consultation regarding his newly diagnosed laryngeal cancer. PAST MEDICAL HISTORY: Laryngeal cancer as in history of present illness, history of hypertension and reflux. MEDICATIONS: ALLERGIES: FAMILY HISTORY: No history of malignancy reported in his first degree relatives. SOCIAL HISTORY: He has not been a cigarette smoker, distant history of chewing tobacco and occasional cigars. REVIEW OF SYSTEMS: As in the history of present illness. Otherwise, a complete review of systems is obtained from the patient, negative for additional associated symptoms. PHYSICAL EXAM: Vital Signs: Temperature 98.4, pulse rate 94, respiratory rate 17, oxygen saturation 99%, blood pressure 109/74. General: He is awake, alert , oriented in no acute distress. Normocephalic, atraumatic. Sclerae are anicteric. Neck: Tracheostomy tube in place. Some tenderness at the tracheostomy site, somewhat limiting examination. Tenderness and fullness around the thyroid cartilage appreciated. No palpable adenopathy appreciated. Lungs: Clear to auscultation bilaterally. Cardiovascular: S1, S2. Regular. Abdomen: Soft, nontender. No mass. No organomegaly. Extremities: No cyanosis, clubbing or edema. PATHOLOGY AND RADIOLOGY: Reviewed, as in the history of present illness. ASSESSMENT AND PLAN: Mr. 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 I did review his history as well as the pathologic and radiographic findings and discussed at some length with the patient, as he is already well informed and familiar. His case was discussed today at multidisciplinary tumor board as well. I explained to the patient considerations for initial management presuming localized disease. I do think PET CT is valuable to optimize his staging. He understands that additional findings on PET could change room attendant but at this stage, it appears to be a localized problem, and the primary management decision is upfront surgery, in his case total laryngectomy versus some attempt at larynx preservation with radiation therapy and concurrent chemotherapy. With regards to radiation therapy for his situation, I explained the logistics and rationale for treatment, risks, benefits, and alternatives as well as acute and custodial frequent and uncommon toxicities. The patient selection for larynx preservation is not perfectly established, but with T4 disease, and a high likelihood for laryngeal dysfunction, upfront surgery with consideration of adjuvant radiation therapy or adjuvant chemoradiation depending on the findings of surgery would be a primary consideration. Patient is very motivated to try to preserve the larynx, could be offered concurrent chemoradiation with the questions of functional outcome and local control. There is some research suggesting worse overall survival in patients with T4 larynx cancer who initially are treated with concurrent chemoradiation, although I do not think it is out of the question for his situation. He does not seem averse to surgery, and his main focus is the best oncologic outcome. We will seek multidisciplinary discussion and I will follow up with the patient thereafter. ADDENDUM: I did discuss with Dr. Navarrete tentatively consideration of total laryngectomy and adjuvant therapy based on pathological findings. I agreed to order his PET CT and Dr. Navarrete will see him for followup and further discussion. I did invite the patient to contact me in the future with any questions or concerns. Typically adjuvant radiation therapy or adjuvant chemoradiation based on findings will commence within 4 weeks from surgery, assuming adequate healing, and I will follow along with his clinical course and try to make arrangements for followup in my office approximately 3 weeks postoperative assuming he does proceed with surgery. Second opinion consultation was also discussed, and would be an option, particularly if he were interested in larynx preservation, I would think a multidisciplinary dedicated head and neck cancer treatment team would shed meaningful insight into how appropriate attempt at larynx preservation would be for his case. Thank you for giving me the opportunity to participate in the care of this very pleasant gentleman. [id number]/[facility] #: [id number] PAZ
[2018-04-01] MEDS: guaiFENesin ER TAB 600 MG PO SCH ×2 (09:10→21:02)
[2018-04-01] MEDS: Pantoprazole IV* 40 MG IV SCH (09:10)
[2018-04-01] MEDS: Lisinopril TAB* 10 MG PO SCH (09:10)
--- NOTE | 2018-04-01 11:02 | CONS ---
CONSULTATION REPORT: DATE OF CONSULT: 04/01/18 HISTORY OF PRESENT ILLNESS: Since I saw him last, Dr. Sosa and Dr. Mccord have evaluated the patien t and I had a discussion with Dr. Sosa. Dr. Sosa thinks that there is a survival benefit for cydney elaine with adjuvant radiation therapy and I have talked extensively to the patient and his daughter, Mehdi roa, about this plan. We reviewed what a total laryngectomy is, I mini it out illustratively so lisseth t they could understand the difference between an end stoma and a side stoma. I mini out how we do t he pharyngotomy closure, the discussion about neck dissections, the potential for microscopic spread into the neck, and he understands all of this. We discussed the risks of fistula formation and the n eed for tube feeding postoperatively. We discussed risks of bleeding, infection, shoulder weakness, tongue weakness, facial weakness. We talked about the laryngectomy tube and how it is used. We talk ed about a staged tracheoesophageal puncture prosthesis be put in. We talked about long-term care. Jenifer persaud used to like to water ski, he will not be able to do that with the laryngectomy; he understands lisseth t. PLAN: The plan is for total laryngectomy with bilateral neck dissections. [id number]/[facility] #: [id number]
--- NOTE | 2018-04-01 15:47 | PN ---
Subjective Date of Service: 04/01/18 Interval History: planned for total laryngectomy with bilateral neck dissection on 04/22, PET prior and Dr. Navarrete office visit 04/18. no GERD, BP controlled. CM trying to arrange with [employer], initially were quoting up to 3 weeks for some of the supplies to be delivered but actual suction equipment may be much sooner. using tylenol q4 for neck/head pain from coughing. Family History: Unchanged from Admission Social History: Unchanged from Admission Past Medical History: Unchanged from Admission Objective Active Medications: Acetaminophen (Tylenol Tab*) 650 mg PO Q4H PRN PRN Reason: FEVER/PAIN Last Admin: 04/01/18 13:37 Dose: 650 mg Al Hydrox/Mg Hydrox/Simethicone (Maalox Plus*) 30 ml PO Q6H PRN PRN Reason: HEARTBURN Last Admin: 03/28/18 10:51 Dose: 30 ml Guaifenesin (Mucinex*) 600 mg PO BID [facility] Last Admin: 04/01/18 09:10 Dose: 600 mg Lisinopril (Prinivil Tab*) 20 mg PO DAILY [facility] Last Admin: 04/01/18 09:10 Dose: 20 mg Pantoprazole Sodium (Protonix Iv*) 40 mg IV DAILY [facility] Last Admin: 04/01/18 09:10 Dose: 40 mg Vital Signs - 8 hr 04/01/18 04/01/18 09:37 11:33 Temperature 98.5 F Pulse Rate 99 Respiratory 16 16 Rate Blood Pressure 109/80 (mmHg) O2 Sat by Pulse 100 Oximetry Oxygen Devices in Use Now: Tracheostomy Collar Appearance: NAD, walking, happy. Eyes: No Scleral Icterus Neck: - - s/p trach Respiratory: - - no wheezing or rales but referred upper airway sounds from trach. Cardiovascular: NL Sounds; No Murmurs; No JVD, RRR Abdominal: NL Sounds; No Tenderness; No Distention, No Hepatosplenomegaly Extremities: No Edema Skin: No Rash or Ulcers, No Nodules or Sclerosis Neurological: Alert and Oriented x 3, NL Sensation, NL Muscle Strength and Tone Nutrition: Taking PO's Result Diagrams: 03/25/18 06:30 03/25/18 06:30 Additional Lab and Data: Microbiology and Other Data: Microbiology 03/21/18 12:20 Blood Venous Aerobic Blood Culture - Final No Growth Day 5 03/21/18 12:20 Blood Venous Anaerobic Blood Culture - Final No Growth Day 5 03/21/18 11:55 Blood Venous Aerobic Blood Culture - Final No Growth Day 5 03/21/18 11:55 Blood Venous Anaerobic Blood Culture - Final No Growth Day 5 03/21/18 16:00 Nasal Nasal Screen MRSA (PCR) - Final Mrsa Not Detected Diagnostic Imaging: . EKG Data: . Assess/Plan/Problems-Billing Mr. Phelps is a 52 y.o male with a past medical history significant for HTN who presented to the ER with difficulty breathing and stridor, found to have a laryngeal mass requiring an emergent tracheostomy. Squamous Cell Carcinoma. Awaiting trach/suction equipment home delivery, planned 04/02. Planned total laryngectomy with bl radical neck dissection on 04/22. - Patient Problems (1) Laryngeal mass Current Visit: Yes Status: Acute Code(s): J38.7 - OTHER DISEASES OF LARYNX SNOMED Code(s): 87181962 Comment: Pt s/p tracheostomy and laryngeal mass biopsy. Pathology with squamous cell carcinoma. Oncology consulted. Pt believes his GERD has led to the development of the probable cancer and he thinks his antihypertensives have caused the GERD. Appreciate Radiation Oncology recs. Still waiting on trach/suction supplier to be arranged. [employer] never returned any of case managements calls. [facility] is the 3rd choice. He describes owning [address] home property. (2) Hyperthyroidism Current Visit: Yes Status: Acute Code(s): E05.90 - THYROTOXICOSIS, UNSP WITHOUT THYROTOXIC CRISIS OR STORM SNOMED Code(s): 65715010 Comment: TSH/FreeT4 lab values noted. Thyrotropin receptor Ab wnl and thyroid stimulating immunoglobulin wnl. f/u as outpatient. (3) DVT prophylaxis Current Visit: Yes Status: Acute Code(s): UZM2783 - SNOMED Code(s): 682528739 Comment: SCDs/ambulation (4) HTN (hypertension) Current Visit: Yes Status: Acute Code(s): I10 - ESSENTIAL (PRIMARY) HYPERTENSION SNOMED Code(s): 04604294 Comment: Continue lisinopril 20mg daily. Monitor BP. good control so far. (5) Full code status Current Visit: Yes Status: Acute Code(s): Z78.9 - OTHER SPECIFIED HEALTH STATUS SNOMED Code(s): 596898831 Status and Disposition: . Anticipated discharge 04/02 if trach/suction supplies arrive.
[2018-04-02] MEDS: Acetaminophen TAB* 325 MG PO PRN ×3 (01:37→09:45)
[2018-04-02 07:59] VITALS: BP 122/86
[2018-04-02] MEDS: Pantoprazole IV* 40 MG IV SCH (09:19)
[2018-04-02] MEDS: guaiFENesin ER TAB 600 MG PO SCH (09:22)
[2018-04-02] MEDS: Lisinopril TAB* 10 MG PO SCH (09:22)
--- NOTE | 2018-04-02 09:42 | DS ---
DISCHARGE SUMMARY: DATE OF ADMISSION: 03/21/18 DATE OF DISCHARGE: 04/02/18 ADMITTING PROVIDER: Yolande Flor MD ATTENDING PHYSICIAN ON DAY OF DISCHARGE: David Ragsdale MD CONSULTING ENT PHYSICIAN: Dr. Navarrete. CONSULTING RADIATION ONCOLOGIST: Dr. Sosa. CONSULTING MEDICAL ONCOLOGIST: Dr. Mccord. PRIMARY CARE PROVIDER: Dr. Villalba. CHIEF COMPLAINT: Difficulty breathing. 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 HISTORY OF PRESENT ILLNESS AND HOSPITAL COURSE: Demarco Phelps is a 52-year-old male with past medical history of hypertension, GERD, occasional binge beer drinking, though none in the last few weeks who presented with difficulty breathing. He had woken up 3 weeks prior with throat pain and had progressive pain and difficulty breathing since then. He was prescribed an antibiotic and prednisone by his primary care provider. Dr. Villalba referred him to ENT. This appointment was on 04/13/18 and symptoms worsened, he was referred to the emergency room for further evaluation. There he was noted on CT soft tissue of the neck with IV contrast that there was a suspected neoplastic lesion involving the left aspect of the larynx with local extension. Subsequently there was tissue involving the left false and true vocal cords, asymmetric rarefaction of the left adenoid cartilage, the segmental rarefaction of the left thyroid cartilage with asymmetric mild overlying soft tissue density thickening and contiguous asymmetric soft tissue density thickening of the left aspect of the proximal subglottic airway extending up to 3 cm below the true vocal cord. He was admitted to the intensive care unit to help for airway management and Dr. Navarrete was consulted. Later that same day, Dr. Navarrete performed tracheostomy given the airway obstruction. This was done emergently. He had a MRI on 03/23/18 which demonstrated large aggressive appearing laryngeal tumor centered at the left false and true vocal cords and extension in adenoid and thyroid cartilages with probable extension across the midline to the right aspect of the larynx. Dr. Navarrete performed a biopsy on 03/25/18, which ultimately grew invasive moderately differentiated squamous cell carcinoma. The patient also had an upsized trach at the time of the biopsy with the fenestrated 8-Thai (8DCFN). This occurred on the Wednesday before the weekend, which complicated arrangement of trach supplies and suctioning equipment to be arranged as an outpatient. He got trach teaching with respiratory therapy and refused the VNS referral. He had also just recently signed out for [facility] and they preferred medical supplier through [employer] did not return case management or group social worker phone calls for several days. Second and third options were pursued but given there is financial and bureaucratic complications , there were several days waiting for this to be set up, but hopefully will be delivered on day of discharge with the addition of [facility] supplied cannulas and other supplies until [employer] can ultimately further supply the patient with this needed equipment. The patient had a CT chest ordered by consulting family engagement specialist/oncologist, Dr. Mccord, which was performed with IV contrast had showed besides the left laryngeal mass, otherwise no remarkable feature or lymphadenopathy. Dr. Sosa and Dr. Navarrete talked to the patient about various surgical and radiation treatment options and the ultimate plan was determined to be proceed with a total laryngectomy on approximately 04/22/18 after an outpatient PET scan can be performed. This will also include bilateral neck dissections. Of significance, the patient refused to take his home metoprolol after he noticed that this seemed to be temporal correlation with ingestion of that with his GERD-like symptoms, both his amlodipine and metoprolol were held and lisinopril 20 mg daily was initiated. The patient reported greatly improved with blood pressure control and abstinence of GERD for several days on this new medication. The patient was noted to have a TSH of 0.15, free T4 of 1.50, and a free T3 of 3.50. He had additional studies of thyroid stimulating immunoglobulin of less than 1.0 ( within normal limits), a thyroid peroxidase antibody and thyroid stimulating hormone receptor antibody were within normal limits. These should be followed up as an outpatient likely after his surgery or further endocrine evaluation. DISCHARGE MEDICATIONS: Include: 1. Tylenol 650 mg p.o. q.4 hours p.r.n. 2. Guaifenesin 600 mg p.o. b.i.d. 3. Lisinopril 20 mg p.o. daily (new). The patient will need to follow up with Dr. Navarrete tentatively on 04/18/18 and prior to this having a PET scan, ultimate total laryngectomy scheduled approximately 04/22/18. Also to follow with Dr. Sosa after this is performed for suspected need for radiation therapies. The patient should follow with Dr. Villalba within 10 to 14 days of discharge. TIME SPENT: On discharge 35 minutes. [id number]/[facility] #: [id number] MTDCaro
== END 2018-04-02 14:00 | disposition home or self-care (01) | DRG 121 ==
LOC: ED 11:07 → ICU 14:55 → SSU 03-24 07:52
PROVIDERS: ADMIT Internal Medicine; ATTEND Internal Medicine
PROC: 0B110F4 Bypass Trachea to Cutaneous with Tracheostomy Device, Open Approach (ICD-10-PCS; principal; 2018-03-21 16:30)
PROC: 0B21XFZ Change Tracheostomy Device in Trachea, External Approach (ICD-10-PCS; 2018-03-25)
PROC: 0CBV8ZX Excision of Left Vocal Cord, Via Natural or Artificial Opening Endoscopic, Diagnostic (ICD-10-PCS; 2018-03-25)
DX: C78.39 Secondary malignant neoplasm of other respiratory organs (principal); C32.9 Malignant neoplasm of larynx, unspecified; E66.9 Obesity, unspecified; I10 Essential (primary) hypertension; J38.01 Paralysis of vocal cords and larynx, unilateral; F12.90 Cannabis use, unspecified, uncomplicated; K21.9 Gastro-esophageal reflux disease without esophagitis; I49.1 Atrial premature depolarization; D72.829 Elevated white blood cell count, unspecified; E05.90 Thyrotoxicosis, unspecified without thyrotoxic crisis or storm; T38.0X5A Adverse effect of glucocorticoids and synthetic analogues, initial encounter; Y92.239 Unspecified place in hospital as the place of occurrence of the external cause; R06.03 Acute respiratory distress; E87.6 Hypokalemia; Z72.0 Tobacco use; Z68.30 Body mass index [BMI] 30.0-30.9, adult; Z72.89 Other problems related to lifestyle
CPT/HCPCS: 36415; 70491; 70543; 71045; 71260; 80048; 80053; 82803; 83520; 83605; 83735; 83880; 84439; 84443; 84445; 84481; 84484; 85025; 85027; 85379; 85610; 85730; 86376; 87040; 87641; 88305; 93005; 99285; A9270-GY; A9579; J0360; J1100; J2060; J2250; J2405; J2543; J2704; J2920; J2930; J3010; J3480; J3490; Q9967

== ENCOUNTER 2018-04-22 10:33 | Inpatient (IN) | payer BC ==
[~2018-04-22 10:33] MED LIST: Buffered Lidocaine 0.9% SYRIN* 5 ML/SYR SYRINGE INTRADERM ONE; Famotidine IV* 10 MG/ML 2 ML (20 mg) IV ONE
--- OUTSIDE RECORDS SUMMARY | 2018-04-22 10:46 | XMS REPORT | Continuity of Care Document ---
:1965 External Reference #:[id number] Author Name Arnoldo Navarrete M.D. Address [address] [place] [address] Care Team Providers Name Role Phone Arnoldo Navarrete M.D. Care Team Information Steward/Stewardess Second Class Unavailable Payers Type Date Identification Numbers Payment Provider Subscriber Effective: Policy Number: [id number] [facility] Demarco Phelps 2018 [facility] Group Name: [employer] 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 Quit at age 41. ETOH Use Currently occasionally consumes beer Tobacco Use Start: Unknown Patient has never smoked Smoking Status Reviewed: 04/18/18 Patient has never smoked Allergies, Adverse Reactions, Alerts Date Description Reaction Status Severity Comments 04/19/2018 Penicillin Active fever, rash Medications Medication Date Status Form Strength Qnty SIG Indications Ordering Provider Amlodipine Besylate / Active Tablets 10mg Take 1 Unknown 0000 Tablet Every Day Omeprazole 00/ Active Capsules 20mg Take [address] Capsule By Mouth Twice Daily Metoprolol Tartrate / Active Tablets 50mg Take 1 Unknown 0000 Tablet By Mouth Twice A Day Hydrochlorothiazide 00/ Active Tablets 25mg Take 1 Unknown 0000 Tablet By Mouth Every Day Aspirin 81 Low Dose 00/ Active Chewtabs 81mg daily Unknown 0000 Immunizations Description No Information Available Vital Signs Date Vital Result Comment 04/19/2018 2:48pm BP Systolic 128 mmHg BP Diastolic 78 mmHg Heart Rate 86 /min Respiratory Rate 18 /min Weight 215.00 lb Weight 97.524 kg Height 73 inches 6'1" Height in cm's 185.4 cm BMI (Body Mass Index) 28.4 kg/m2 Results Description No Information Available Procedures Date Code Description Status 03/25/2018 87269 Laryngoscopy W/Biopsy,W/Micro Or Telescope Completed 03/25/2018 21388 Tracheotomy Tube Change Pre Fiscu Completed 03/21/2018 22297 Tracheostomy Completed Encounters Type Date Location Provider Dx Diagnosis Office Visit 04/19/2018 [facility] Arnoldo Tian C32.8 Malignant neoplasm 2:45p 07/26/07 Clifford Navarrete of overlapping sites of larynx Plan of Treatment Future Appointment(s):04/22/2018 11:30 am - Jani Santana MD at [facility] 9:00 am - Arnoldo Navarrete M.D. at [facility] [place] R004/19/2018 - Arnoldo Navarrete M.D.C32.8 Malignant neoplasm of overlapping sites of larynxComments:The patient has stage 4 laryngeal cancer. At this point there does not appear to be significant lymphadenopathy. There is one area of neck activity on his PET scan that Dr. Santana looked at and we do not think it is metastatic disease but cannot be 100% sure. His chest CT was clear. The TNM staging is T4,N0,M0 clinical. At this stage after review by oncology and radiation oncology the recommendation is for surgery with postoperative radiation therapy. There is a survival benefit with up frontsurgery. The only laryngeal surgery that can be offered is a total laryngectomy. The question is whether to perform neck dissections. After discussion with Dr. Santana and Dr. Sosa, I do recommendbilateral selective neck dissections. If there is pathologic disease, Dr. Sosa may change is radiation protocol. We discussed that the is an extensive surgery with significant risks. He understands his voice box will be removed. I described this to him and mini it out for him. The risks are bleeding, infection, injury to his shoulder, face and tongue nerves, and pharyngocutaneous fistula formation. The skin of his neck up to and possibly including his ear will be numb after surgery. He will be tube fed for 1 to 2 weeks. this will be sewn to his septum. A laryngectomy tube will be placed at the time of surgery. I may perform a primary tracheoesophageal puncture or perform this secondarily.We discussed that this is how he will speak. He can also use an electrolarynx. He has already had a preoperative speech therapy evaluation. He will have a laryngectomy tube and two drains in postoperatively. It is un likely he will need blood transfusions, but this is a remote possibility. the planned surgery is ~B_Total laryngectomy with bilateral selective neck dissections and possible placement of tracheoesophageal puncture prosthesis. He will need perioperative antibioticsHe will need a postoperative admission to the ICU for observation~b_
--- OUTSIDE RECORDS SUMMARY | 2018-04-22 10:46 | XMS REPORT ---
:1965 External Reference #:[id number] 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
[2018-04-22] MEDS ORDERED: Famotidine IV* 10 MG/ML 2 ML (20 mg) ONE (11:47)
[2018-04-22] MEDS ORDERED: Metoclopramide IV* 5 MG/ML 2 ML VIAL ONE (11:47)
[2018-04-22] MEDS ORDERED: Propofol* 10 MG/ML 20 ML BTL IV PUSH ONE ×2 (11:48→16:45)
[2018-04-22] MEDS ORDERED: Ondansetron INJ* 2 MG/ML VIAL ONE (11:48)
[2018-04-22] MEDS ORDERED: fentaNYL* 50 MCG/ML 5 ML VIAL (250 MCG VIAL) ONE ×2 (11:48→15:27)
[2018-04-22] MEDS ORDERED: KETAMINE HCL* 50 MG/ML 10 ML VIAL ONE (11:48)
[2018-04-22] MEDS ORDERED: Lidocaine 2% PF * 5 ML VIAL ONE (11:48)
[2018-04-22] MEDS ORDERED: Dexamethasone IV* 4 MG/ML 1 ML (4 MG) ONE (11:48)
[2018-04-22] MEDS ORDERED: Midazolam* 1 MG/ML 10 ML VIAL (10 MG) ONE (11:49)
[2018-04-22] MEDS ORDERED: Ciprofloxacin 400MG IVPREMIX(* 400 MG/200 ML BAG ONE (12:05)
[2018-04-22] MEDS ORDERED: Clindamycin 900 MG/D5W BAG(*) 900 MG/50 ML BAG IVPB ONE (12:05)
[2018-04-22] MEDS ORDERED: Lidocaine 1% MPF wEPI 200,000* 30 ML SDV ONE (13:22)
[2018-04-22] MEDS ORDERED: VASOPRESSIN 20 UNITS/ML 1 ML VIAL ONE (13:55)
[2018-04-22] MEDS ORDERED: fentaNYL* 50 MCG/ML 2 ML VIAL (100 MCG VIAL) ONE (16:46)
[2018-04-22] MEDS ORDERED: HYDROmorphone INJ1* 1 MG/ML SYRINGE ONE (17:43)
[2018-04-22] MEDS ORDERED: Bacitracin OINTMENT* 0.5% 0.5 oz TUBE ONE (18:09)
[2018-04-22] MEDS ORDERED: Labetalol IV* 5 MG/ML 20 ML VIAL IV PUSH ONE (19:00)
[2018-04-22] MEDS ORDERED: Acetaminophen IV 1GM/100ML * 100 ML ONE (19:28)
[2018-04-22] MEDS ORDERED: Ibuprofen TAB* 800 MG PO PRN (20:10)
[2018-04-22] MEDS ORDERED: oxyCODONE ORAL.SOLN* 5 MG/5 ML UDC PRN ×2 (20:21→20:22)
[2018-04-22] MEDS ORDERED: Ondansetron INJ* 2 MG/ML VIAL IV PRN (20:22)
[2018-04-22] MEDS ORDERED: Ondansetron INJ* 2 MG/ML VIAL IM PRN (20:22)
[2018-04-22] MEDS ORDERED: Ondansetron TAB* 4 MG PO PRN (20:23)
[2018-04-22] MEDS: Clindamycin 600 MG IVPREMIX(* 600 MG/50 ML SDV IV SCH (21:16)
--- NOTE | 2018-04-22 21:54 | HP ---
H&P (Free Text) History and Physical: [facility] H&P CC: Larygneal mass HPI: 52M with htn, gerd, squamous cell carcinoma of the larynx, prior tracheostomy for airway obstruction presents after elective total laryngectomy. The patient is comfortable. He complains of some pain and wants tylenol. The patient denies any other complaints. ROS - as per HPI PMHx - htn, gerd, SCC of larynx PSHx - appendectomy, foot surgery, tracheostomy All - penicillin SocHx - no drugs, etoh, tobacco FanHx - denies PE Vital Signs: Temp Pulse Resp BP Pulse Ox 97.8 F 85 15 143/96 96 04/22/18 20:23 04/22/18 20:23 04/22/18 20:23 04/22/18 20:23 04/22/18 20:23 Gen - NAD HEENT - ncat, eomi, peerl Neck - +trach CV - s1/s2, no murmur Pulm - cta, no wheeze Abd - soft, nt, nd Ext - no cce Neuro - non-focal Labs - pending Imaging - none Impression 52M wiht htn, gerd, SCC of the larynx presents after elective total laryngectomy Plan Tracheostomy care per ENT prophylactic cipro/clindamycin Pain control npo for now nutrition consult in am gi/dvt ppx full code Monitor in ICU
[2018-04-22] MEDS ORDERED: Acetaminophen IV 1GM/100ML * 100 ML IVPB PRN (22:00)
[2018-04-23] MEDS: Ciprofloxacin 400MG IVPREMIX(* 400 MG/200 ML BAG IVPB SCH ×2 (02:29→14:12)
[2018-04-23 05:02] LABS: Hematocrit 32 % (42-52); Hemoglobin 10.6 g/dl (14.0-18.0); Mean Corpuscular HGB Conc 34 g/dl (31-36); Mean Corpuscular Hemoglobin 31 pg (27-31); Mean Corpuscular Volume 93 fL (80-94); Mean Platelet Volume 7.1 um3 (7.4-10.4); Platelet Count 357 10^3/ul (150-450); Red Blood Count 3.39 10^6/ul (4.00-5.40); Red Cell Distribution Width 13 % (10.5-15); White Blood Count 16.5 10^3/ul (3.5-10.8)
[2018-04-23 05:13] LABS: INR 1.06 (0.77-1.02)
[2018-04-23 05:20] LABS: EGFR Non-African American 100.5 (>60)
[2018-04-23] MEDS: Clindamycin 600 MG IVPREMIX(* 600 MG/50 ML SDV IV SCH ×2 (05:25→16:10)
[2018-04-23 05:48] LABS: ABS Basophils 0.1 10^3/ul (0-0.2); ABS Eosinophils 0 10^3/ul (0-0.6); ABS Lymphocytes 0.6 10^3/ul (1.0-4.8); ABS Monocytes 1.6 10^3/ul (0-0.8); ABS Neutrophils 14.1 10^3/ul (1.5-7.7); ABS Nucleated RBC 0 10^3/ul; Eosinophil % 0 % (0-6); Lymphocyte % 3.9 % (25-47); Nucleated Red Blood Cells % 0
--- NOTE | 2018-04-23 06:22 | OP ---
OPERATIVE NOTE: DATE OF OPERATION: 04/22/18 DATE OF : 67 SURGEON: Misha Navarrete MD CO-SURGEON: Jani Santana M.D. 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 OPERATIVE PROCEDURE: Total laryngectomy, bilateral neck dissections levels 2, 3, and 4 and primary t racheoesophageal puncture prosthesis under general endotracheal anesthesia. BLOOD LOSS: 100 mL. SPECIMEN: 1. Right most inferior lymph node. 2. Portion of right neck dissection. 3. Total laryngectomy with left dissection and anterior right neck dissection. COMPLICATIONS: None. DISPOSITION: Good and a #10 Shiley laryngectomy tube was placed. DESCRIPTION OF PROCEDURE: The patient was taken to the operating room. He already had a tracheostom y in place. He was placed on the supine position in the operating table. General anesthesia was ind uced and the tracheostomy tube was replaced and a reinforced flexible tube was inserted through his s adriano and sutured to his chest skin. His head was extended, a low apron incision was demarcated to co me just superior to the stoma and injected 1% lidocaine with 1:200,000 epinephrine. His neck was pre pped with Betadine. Incision was made from the right mastoid tip. Following this incision to the lef t mastoid tip, superior and inferior subplatysmal flaps were raised. The limits of this dissection w ere the digastric muscle bilaterally. The procedure was done similarly bilaterally. Dissection was taken down to the digastric muscle to isolate this. The fascia was unwrapped from the sternocleidoma stoid muscle into the deep portion of the neck. The spinal accessory nerve was found as was the hypo glossal nerve inferiorly, the omohyoid muscle was cut laterally. The dissection was taken down just inferior to this, the deep cervical fascia was found and the specimen was systematically elevated out of the neck off of the deep cervical rootlets posteriorly, peeling it anteriorly onto the carotid sh eath where the specimen was taken off of the carotid artery, vagus nerve and internal jugular vein, a nd on the left the entire specimen was left attached to the laryngeal specimen. On the right we pedersen sected a posterior portion of it and the more medial aspect we brought onto the specimen with the lar ynx. The tongue muscle was released off the hyoid bone. The greater cornu was isolated and released inferior to it. The dissection was taken down allowing the cricothyroid and pharyngeal constrictor muscles to release that off the thyroid cartilage and the thyroid gland was elevated off of the trach ea, the trachea was exposed inferior to the trachea stoma. The strap muscles were released off of th e clavicles. On the left side the tumor was breaking through the inferior-posterior aspect of the la rynx, so we left the superior aspect of the thyroid attached to specimen and came more posteriorly to release the pharyngeal constrictors as we did the laryngectomy. The greater cornu of the thyroid car tilage was released and the pyriform sinus mucosa was peeled off at the medial aspect of the thyroid cartilage. A big Martha was placed into the vallecula and the pharyngotomy was made in the vallecula and the epiglottis was pulled out through the neck incision. Curved Crump's was used to systematical ly release the larynx from the pharynx. On the right side we were able to go very medially through t he pyriform sinus inferior to the constitution party wall. A knife was used to cut the constitution party wall to open up the space between the esophagus and the trachea. We came around on the left side similarly, coming more lateral and inferior to get the cancer that was breaking through and we took scissors and cut through the trachea removing the laryngectomy specimen from the neck. The trachea was sutured to the inferi or skin. The wound was irrigated with copious normal saline. A cricopharyngeal myotomy was performe d to open up the esophageal inlet. The pharyngotomy was closed with 3-0 Vicryl in an imbricating tech nique inferiorly superiorly and a Dobhoff tube had been placed and attached to the nasal septum. All interrupted sutures were placed again using imbricating technique to do it and then a second layer wa s placed where possible to cover the incision. Prior to this, a primary TEP with a Provox #10 was pe rformed and the prosthesis was placed. The stoma was matured suturing it to the skin. Skin was close d with 3-0 deep dermal Vicryl and then stapled and 2 JPs were placed one on either side #[address] and then the laryngectomy tube was placed. Bacitracin was placed on the incision. The p atient tolerated this procedure well, no complications, transferred to the recovery room in stable co ndition. [id number]/[facility] #: [id number]
--- NOTE | 2018-04-23 07:58 | RAD ---
HISTORY: s/p laryngectomy, eval for ptx COMPARISONS: March 21, 2018 VIEWS: 1: frontal AP view of the chest at 10:12 PM FINDINGS: LINES AND TUBES: A tracheostomy tube is noted. A feeding tube is noted. The tip is at the level of the GE junction. CARDIOMEDIASTINAL SILHOUETTE: The cardiomediastinal silhouette is normal for portable technique. PLEURA: The costophrenic angles are sharp. No pleural abnormalities are noted. There is no appreciable pneumothorax. LUNG PARENCHYMA: The lungs are clear. ABDOMEN: The upper abdomen is clear. There is no subphrenic gas. BONES AND SOFT TISSUES: There is post surgical change to the neck. IMPRESSION: LINES AND TUBES ABOVE. NO ACTIVE CARDIOPULMONARY DISEASE. R1
[2018-04-23] MEDS ORDERED: Magnesium Sulfate 2 GM IV* 2 GM/50 ML BAG IVPB ONE (08:23)
--- NOTE | 2018-04-23 08:32 | PN ---
Date of Service: 04/23/18 Critical Care Services: 52M with htn, gerd, SCC of the larynx presents after elective total laryngectomy 04/23: complains of some shoulder numbess without weakness. Mild pain. Vital Signs: Temp Pulse Resp BP SpO2 FiO2 97.9 F 78 15 138/96 98 40 04/23/18 04:00 04/23/18 07:00 04/23/18 07:00 04/23/18 07:00 04/23/18 07:00 04/23 07:58 Physical Exam: Gen - NAD HEENT - ncat, eomi, peerl Neck - +trachm +bilateral carmen drains CV - s1/s2, no murmur Pulm - cta, no wheeze Abd - soft, nt, nd Ext - no cce Neuro - non-focal Fluid Balance (Past 24 Hours): I= O= Net Intake & Output 04/21/18 04/22/18 04/23/18 04/24/18 06:59 06:59 06:59 06:59 Intake Total 4328.3 Output Total 1770 Balance 2558.3 Weight 99 kg Intake: IV Fluids 3231.3 D5W 200ML, Cipro 400mg 200 LR 2981.3 NS 100ML, Clindamycin 50 600MG IVPB 997 ABX - CIPROFLOXACIN 200 ABX - CLINDAMYCIN 107 LR 690 Medicated IV 100 acetaminophen 100 Output: CARMEN #1 105 CARMEN #2 65 Urine 700 Jensen 800 Residual 100 Jensen 16 Fr 100 Other: Date of Last Bowel 04/22/18 Movement Labs: Laboratory Results - last 24 hr 04/23/18 04/23/18 04/23/18 04:53 04:53 04:53 WBC 16.5 H RBC 3.39 L Hgb 10.6 L Hct 32 L MCV 93 MCH 31 MCHC 34 RDW 13 Plt Count 357 MPV 7.1 L Neut % (Auto) 85.8 H Lymph % (Auto) 3.9 L [place] % (Auto) 9.9 H Eos % (Auto) 0 Baso % (Auto) 0.4 Absolute Neuts (auto) 14.1 H Absolute Lymphs (auto) 0.6 L Absolute Monos (auto) 1.6 H Absolute Eos (auto) 0 Absolute Basos (auto) 0.1 Absolute Nucleated RBC 0 Nucleated RBC % 0 INR (Anticoag Therapy) 1.06 H Sodium 133 L Potassium 4.2 Chloride 100 L Carbon Dioxide 25 Anion Gap 8 BUN 11 Creatinine 0.81 Est GFR ( Amer) 121.6 Est GFR (Non-Af Amer) 100.5 BUN/Creatinine Ratio 13.6 Glucose 137 H Calcium 9.0 Magnesium 1.6 L Total Bilirubin 0.50 AST 15 ALT 16 Alkaline Phosphatase 57 Total Protein 6.3 L Albumin 3.5 Globulin 2.8 Albumin/Globulin Ratio 1.3 Studies: CXR 04/23 IMPRESSION: LINES AND TUBES ABOVE. NO ACTIVE CARDIOPULMONARY DISEASE Impression: 52M wiht htn, gerd, SCC of the larynx presents after elective total laryngectomy Plan: Neuro - shoulder numbness - post surgical - no weakness - will likely resolve in time ENT - s/p laryngectomy - trach care per ENT - pain control CV - htn - c/w home antihypertensives Pulm - oxygenating well ID - elevated wbc - likely reactive - afebrile - no abx for now GI - npo - tube feeds when cleared by ENT - nutrition consult Renal - hyponatremia - 2/2 volume depletion - c/w iv hydration - replete magnesium Heme - SCC of larynx - s/p laryngectomy - no metastatic disease on prior imaging - follow up as outpatient Endo - check fs, niss Lines - piv PPx - gi/dvt Full Code
--- NOTE | 2018-04-23 09:11 | RAD ---
HISTORY: confirm NGT placement COMPARISONS: April 22, 2018 VIEWS: 1: frontal AP view of the chest at 8:25 AM FINDINGS: LINES AND TUBES: A tracheostomy tube is noted. A feeding tube is noted with the tip at the GE junction. CARDIOMEDIASTINAL SILHOUETTE: The cardiomediastinal silhouette is normal for portable technique. PLEURA: The costophrenic angles are sharp. No pleural abnormalities are noted. LUNG PARENCHYMA: The lungs are clear. ABDOMEN: The upper abdomen is clear. There is no subphrenic gas. BONES AND SOFT TISSUES: No bone or soft tissue abnormalities are noted. IMPRESSION: LINES AND TUBES ABOVE. NO ACTIVE CARDIOPULMONARY DISEASE.
--- NOTE | 2018-04-23 10:54 | RAD ---
HISTORY: ng tube advanced COMPARISONS: April 23, 2013 at 8:20 AM VIEWS: 1: frontal AP view of the chest at 10:23 AM FINDINGS: LINES AND TUBES: A tracheostomy tube is noted with the tip overlying the trachea.. A feeding tube is noted, with the tip in the left upper quadrant in a prepyloric position.. CARDIOMEDIASTINAL SILHOUETTE: The cardiomediastinal silhouette is normal for portable technique. PLEURA: The costophrenic angles are sharp. No pleural abnormalities are noted. LUNG PARENCHYMA: The lungs are clear. ABDOMEN: The upper abdomen is clear. There is no subphrenic gas. BONES AND SOFT TISSUES: No bone or soft tissue abnormalities are noted. IMPRESSION: LINES AND TUBES ABOVE. NO ACTIVE CARDIOPULMONARY DISEASE.
[2018-04-23] MEDS: Lisinopril TAB* 10 MG NG TUBE SCH (11:30)
[2018-04-23] MEDS: Lansoprazole susp Kit 3 MG/ML (15 MG = 5 ML) FEED TUBE SCH (11:30)
[2018-04-23] MEDS: Acetaminophen ADULT LIQ* 650 MG/20.3 ML UDC PRN ×2 (12:55→19:24)
[2018-04-24] MEDS: Acetaminophen ADULT LIQ* 650 MG/20.3 ML UDC PRN ×5 (00:11→19:45)
[2018-04-24] MEDS: Ciprofloxacin 400MG IVPREMIX(* 400 MG/200 ML BAG IVPB SCH (01:06)
[2018-04-24 05:08] LABS: ABS Basophils 0 10^3/ul (0-0.2); ABS Eosinophils 0.1 10^3/ul (0-0.6); ABS Lymphocytes 0.6 10^3/ul (1.0-4.8); ABS Monocytes 1.2 10^3/ul (0-0.8); ABS Neutrophils 8.2 10^3/ul (1.5-7.7); ABS Nucleated RBC 0 10^3/ul; Hematocrit 30 % (42-52); Hemoglobin 10.3 g/dl (14.0-18.0); Lymphocyte % 5.9 % (25-47); Mean Corpuscular HGB Conc 34 g/dl (31-36); Mean Corpuscular Hemoglobin 32 pg (27-31); Mean Corpuscular Volume 93 fL (80-94); Nucleated Red Blood Cells % 0; Platelet Count 310 10^3/ul (150-450); Red Blood Count 3.25 10^6/ul (4.00-5.40); Red Cell Distribution Width 13 % (10.5-15); White Blood Count 10.1 10^3/ul (3.5-10.8)
[2018-04-24 05:18] LABS: EGFR Non-African American 79.7 (>60)
--- NOTE | 2018-04-24 08:43 | PN ---
Date of Service: 04/24/18 Critical Care Services: 52M with htn, gerd, SCC of the larynx presents after elective total laryngectomy 04/23: complains of some shoulder numbess without weakness. Mild pain. 04/24: patient with significant anxiety Vital Signs: Temp Pulse Resp BP SpO2 FiO2 98.6 F 89 18 110/77 97 35 04/24/18 08:00 04/24/18 06:00 04/24/18 06:00 04/24/18 06:00 04/24/18 06:00 04/24 03:38 Physical Exam: Gen - NAD HEENT - ncat, eomi, peerl Neck - +trachm +bilateral carmen drains CV - s1/s2, no murmur Pulm - cta, no wheeze Abd - soft, nt, nd Ext - no cce Neuro - non-focal Fluid Balance (Past 24 Hours): I= O= Net Intake & Output 04/22/18 04/23/18 04/24/18 04/25/18 06:59 06:59 06:59 06:59 Intake Total 4328.3 1726 Output Total 1770 1060 Balance 2558.3 666 Weight 99 kg 101.2 kg Intake: IV Fluids 3231.3 1201 D5W 200ML, Cipro 400mg 200 LR 2981.3 1201 NS 100ML, Clindamycin 50 600MG IVPB 997 210 ABX - CIPROFLOXACIN 200 210 ABX - CLINDAMYCIN 107 LR 690 Medicated IV 100 acetaminophen 100 Oral 0 Tube Feeding 115 Tube Feeding Flush Amount 200 Output: CARMEN #1 105 70 CARMEN #2 65 65 Urine 700 925 Jensen 800 Residual 100 Jensen 16 Fr 100 Other: Date of Last Bowel 04/22/18 Movement Labs: Laboratory Results - last 24 hr 04/24/18 04/24/18 05:00 05:00 WBC 10.1 RBC 3.25 L Hgb 10.3 L Hct 30 L MCV 93 MCH 32 H MCHC 34 RDW 13 Plt Count 310 MPV 7.0 L Neut % (Auto) 81.2 Lymph % (Auto) 5.9 L Blount % (Auto) 11.5 H Eos % (Auto) 1.0 Baso % (Auto) 0.4 Absolute Neuts (auto) 8.2 H Absolute Lymphs (auto) 0.6 L Absolute Monos (auto) 1.2 H Absolute Eos (auto) 0.1 Absolute Basos (auto) 0 Absolute Nucleated RBC 0 Nucleated RBC % 0 Sodium 136 Potassium 4.0 Chloride 100 L Carbon Dioxide 32 Anion Gap 4 BUN 8 Creatinine 0.99 Est GFR ( Amer) 96.4 Est GFR (Non-Af Amer) 79.7 BUN/Creatinine Ratio 8.1 Glucose 112 H Calcium 8.6 Studies: CXR 04/23 IMPRESSION: LINES AND TUBES ABOVE. NO ACTIVE CARDIOPULMONARY DISEASE Impression: 52M wiht htn, gerd, SCC of the larynx presents after elective total laryngectomy Plan: Neuro - shoulder numbness - post surgical - no weakness - will likely resolve in time ENT - s/p laryngectomy - trach care per ENT - pain control CV - htn - c/w home antihypertensives Pulm - oxygenating well ID - wbc improved afebrile GI - - tube feeds - nutrition consult Renal - hyponatremia - resolved with ivf Heme - SCC of larynx - s/p laryngectomy - no metastatic disease on prior imaging - follow up as outpatient Endo - check fs, niss Lines - piv PPx - gi/dvt Full Code
[2018-04-24] MEDS: Lisinopril TAB* 10 MG NG TUBE SCH (10:04)
[2018-04-24] MEDS: Lansoprazole susp Kit 3 MG/ML (15 MG = 5 ML) FEED TUBE SCH (10:04)
[2018-04-25] MEDS: Acetaminophen ADULT LIQ* 650 MG/20.3 ML UDC PRN ×4 (01:22→18:22)
[2018-04-25] MEDS: Lisinopril TAB* 10 MG NG TUBE SCH (07:36)
[2018-04-25] MEDS: Lansoprazole susp Kit 3 MG/ML (15 MG = 5 ML) FEED TUBE SCH (07:36)
--- NOTE | 2018-04-25 08:35 | PN ---
Date of Service: 04/25/18 Critical Care Services: 52M with htn, gerd, SCC of the larynx presents after elective total laryngectomy 04/23: complains of some shoulder numbess without weakness. Mild pain. 04/24: patient with significant anxiety 04/25: no complaints Vital Signs: Temp Pulse Resp BP SpO2 FiO2 98.2 F 91 25 163/113 97 35 04/25/18 07:35 04/25/18 08:00 04/25/18 08:00 04/25/18 07:00 04/25/18 08:00 04/25 04:00 Physical Exam: Gen - NAD HEENT - ncat, eomi, peerl Neck - +trach, +bilateral carmen drains CV - s1/s2, no murmur Pulm - cta, no wheeze Abd - soft, nt, nd Ext - no cce Neuro - non-focal Fluid Balance (Past 24 Hours): I= O= Net Intake & Output 04/23/18 04/24/18 04/25/18 04/26/18 06:59 06:59 06:59 06:59 Intake Total 4328.3 1726 973 Output Total 1770 1060 1485 Balance 2558.3 666 -512 Weight 99 kg 101.2 kg 98.7 kg Intake: IV Fluids 3231.3 1201 770 D5W 200ML, Cipro 400mg 200 LR 2981.3 1201 770 NS 100ML, Clindamycin 50 600MG IVPB 997 210 ABX - CIPROFLOXACIN 200 210 ABX - CLINDAMYCIN 107 LR 690 Medicated IV 100 acetaminophen 100 Oral 0 Tube Feeding 115 43 Tube Feeding Flush Amount 200 160 Output: CARMEN #1 105 70 50 CARMEN #2 65 65 10 Urine 220 693 4234 Jensen 800 Residual 100 Jensen 16 Fr 100 Other: Date of Last Bowel 04/22/18 Movement Studies: CXR 04/23 IMPRESSION: LINES AND TUBES ABOVE. NO ACTIVE CARDIOPULMONARY DISEASE Impression: 52M wiht htn, gerd, SCC of the larynx presents after elective total laryngectomy Plan: Neuro - shoulder numbness - post surgical - no weakness - will likely resolve in time ENT - s/p laryngectomy - trach care per ENT - pain control CV - htn - c/w lisinopril - add hctz 12.5 Pulm - oxygenating well ID - wbc improved afebrile GI - - tube feeds - nutrition consult Renal - hyponatremia - resolved with ivf Heme - SCC of larynx - s/p laryngectomy - no metastatic disease on prior imaging - follow up as outpatient Endo - check fs, niss Lines - piv PPx - gi/dvt Full Code Discharge Planning
[2018-04-25] MEDS ORDERED: Hydrochlorothiazide TAB* 25 MG PO SCH (09:00)
[2018-04-26] MEDS: Acetaminophen ADULT LIQ* 650 MG/20.3 ML UDC PRN ×6 (00:26→20:50)
[2018-04-26] MEDS: Lansoprazole susp Kit 3 MG/ML (15 MG = 5 ML) FEED TUBE SCH (07:56)
--- NOTE | 2018-04-26 08:22 | PN ---
Date of Service: 04/26/18 Critical Care Services: 52M with htn, gerd, SCC of the larynx presents after elective total laryngectomy 04/23: complains of some shoulder numbess without weakness. Mild pain. 04/24: patient with significant anxiety 04/25: no complaints 04/26: low grade temp overnight. complains that his head feels swollen. Vital Signs: Temp Pulse Resp BP SpO2 FiO2 98.1 F 85 24 145/112 100 35 04/26/18 07:58 04/26/18 08:00 04/26/18 08:00 04/25/18 23:22 04/26/18 08:00 04/26 04:00 Physical Exam: Gen - NAD HEENT - ncat, eomi, peerl Neck - +trach CV - s1/s2, no murmur Pulm - cta, no wheeze Abd - soft, nt, nd Ext - no cce Neuro - non-focal Fluid Balance (Past 24 Hours): I= O= Net Intake & Output 04/24/18 04/25/18 04/26/18 04/27/18 06:59 06:59 06:59 06:59 Intake Total 1726 973 280 Output Total 1060 1485 550 Balance 666 -512 -270 Weight 101.2 kg 98.7 kg 99.6 kg Intake: IV Fluids 1201 770 LR 1201 770 IVPB 210 ABX - CIPROFLOXACIN 210 Oral 0 Tube Feeding 115 43 Tube Feeding Flush Amount 200 160 280 Output: CHICA #1 70 50 CHICA #2 65 10 Urine 925 1425 550 Studies: CXR 04/23 IMPRESSION: LINES AND TUBES ABOVE. NO ACTIVE CARDIOPULMONARY DISEASE Impression: 52M wiht htn, gerd, SCC of the larynx presents after elective total laryngectomy Plan: Neuro - pain control ENT - s/p laryngectomy - trach care per ENT - pain control CV - htn - c/w lisinopril Pulm - oxygenating well ID - low grade temp overnight - no obvious source of infection - hold off abx for now GI - - tube feeds Renal - hyponatremia - resolved with ivf Heme - SCC of larynx - s/p laryngectomy - no metastatic disease on prior imaging - follow up as outpatient Endo - check fs, niss Lines - piv PPx - gi/dvt Full Code Discharge Planning
[2018-04-26] MEDS: Lisinopril TAB* 10 MG NG TUBE SCH (09:08)
[2018-04-27] MEDS: Acetaminophen ADULT LIQ* 650 MG/20.3 ML UDC PRN ×5 (01:50→23:50)
[2018-04-27 05:08] LABS: ABS Basophils 0 10^3/ul (0-0.2); ABS Eosinophils 0.2 10^3/ul (0-0.6); ABS Lymphocytes 0.6 10^3/ul (1.0-4.8); ABS Neutrophils 5.3 10^3/ul (1.5-7.7); ABS Nucleated RBC 0 10^3/ul; Eosinophil % 2.3 % (0-6); Hematocrit 32 % (42-52); Hemoglobin 10.7 g/dl (14.0-18.0); Lymphocyte % 8.2 % (25-47); Mean Corpuscular HGB Conc 34 g/dl (31-36); Mean Corpuscular Hemoglobin 31 pg (27-31); Mean Corpuscular Volume 93 fL (80-94); Mean Platelet Volume 7.3 um3 (7.4-10.4); Nucleated Red Blood Cells % 0; Platelet Count 301 10^3/ul (150-450); Red Cell Distribution Width 13 % (10.5-15); White Blood Count 7.2 10^3/ul (3.5-10.8)
[2018-04-27 05:17] LABS: EGFR Non-African American 113.3 (>60)
--- NOTE | 2018-04-27 08:29 | PN ---
Date of Service: 04/27/18 Critical Care Services: 52M with htn, gerd, SCC of the larynx presents after elective total laryngectomy 04/23: complains of some shoulder numbess without weakness. Mild pain. 04/24: patient with significant anxiety 04/25: no complaints 04/26: low grade temp overnight. complains that his head feels swollen. 04/27: Doing well. Discharge planning in process. Vital Signs: Temp Pulse Resp BP SpO2 FiO2 98.5 F 89 17 133/88 97 35 04/27/18 07:56 04/27/18 07:28 04/27/18 08:00 04/27/18 07:28 04/27/18 07:28 04/27 04:00 Physical Exam: Gen - NAD HEENT - ncat, eomi, peerl Neck - +trach CV - s1/s2, no murmur Pulm - cta, no wheeze Abd - soft, nt, nd Ext - no cce Neuro - non-focal Fluid Balance (Past 24 Hours): I= O= Net Intake & Output 04/25/18 04/26/18 04/27/18 04/28/18 06:59 06:59 06:59 06:59 Intake Total 154 390 5146 Output Total 1485 550 250 Balance -512 -270 2685 Weight 98.7 kg 99.6 kg 98 kg Intake: IV Fluids 770 LR 770 Tube Feeding 43 2659 Tube Feeding Flush Amount 160 280 276 Output: CHICA #1 50 CHICA #2 10 Urine 1425 550 250 Other: Date of Last Bowel 04/26/18 Movement Estimated Stool Amount Small Labs: Laboratory Results - last 24 hr 04/27/18 04/27/18 04:47 04:47 WBC 7.2 RBC 3.40 L Hgb 10.7 L Hct 32 L MCV 93 MCH 31 MCHC 34 RDW 13 Plt Count 301 MPV 7.3 L Neut % (Auto) 74.6 Lymph % (Auto) 8.2 L Mclennan % (Auto) 14.6 H Eos % (Auto) 2.3 Baso % (Auto) 0.3 Absolute Neuts (auto) 5.3 Absolute Lymphs (auto) 0.6 L Absolute Monos (auto) 1.0 H Absolute Eos (auto) 0.2 Absolute Basos (auto) 0 Absolute Nucleated RBC 0 Nucleated RBC % 0 Sodium 135 Potassium 3.8 Chloride 101 Carbon Dioxide 27 Anion Gap 7 BUN 11 Creatinine 0.73 Est GFR ( Amer) 137.1 Est GFR (Non-Af Amer) 113.3 BUN/Creatinine Ratio 15.1 Glucose 128 H Calcium 8.6 Magnesium 2.1 Studies: CXR 04/23 IMPRESSION: LINES AND TUBES ABOVE. NO ACTIVE CARDIOPULMONARY DISEASE Impression: 52M wiht htn, gerd, SCC of the larynx presents after elective total laryngectomy Plan: Neuro - pain control ENT - s/p laryngectomy - trach care per ENT - pain control CV - htn - c/w lisinopril Pulm - oxygenating well ID - afebrile - normal wbc GI - - tube feeds Renal - hyponatremia - resolved with ivf Heme - SCC of larynx - s/p laryngectomy - no metastatic disease on prior imaging - follow up as outpatient Endo - check fs, niss Lines - piv PPx - gi/dvt Full Code Discharge Planning
[2018-04-27] MEDS: Lansoprazole susp Kit 3 MG/ML (15 MG = 5 ML) FEED TUBE SCH (09:02)
[2018-04-27] MEDS: Lisinopril TAB* 10 MG NG TUBE SCH (09:02)
[2018-04-28] MEDS: Acetaminophen ADULT LIQ* 650 MG/20.3 ML UDC PRN ×3 (04:37→13:37)
[2018-04-28] MEDS: Lisinopril TAB* 10 MG NG TUBE SCH (09:07)
[2018-04-28] MEDS: Lansoprazole susp Kit 3 MG/ML (15 MG = 5 ML) FEED TUBE SCH (09:07)
[2018-04-28 11:56] VITALS: BP 141/93
--- NOTE | 2018-04-29 04:02 | DS ---
DISCHARGE SUMMARY: DATE OF ADMISSION: 04/22/18 DATE OF DISCHARGE: 04/28/18 PATIENT OF ADMITTING PROVIDER: Reji Orourke DO, from ICU. PRIMARY CARE PROVIDER: Dr. Joshua Villalba. PRIMARY ENT PROVIDER: Dr. Misha Navarrete. ADMISSION DIAGNOSES: 1. Laryngeal squamous cell carcinoma. 2. Hypertension. 3. Gastroesophageal reflux disease. DISCHARGE DIAGNOSES: 1. Laryngeal squamous cell carcinoma. 2. Hypertension. 3. Gastroesophageal reflux disease. ADMITTING PHYSICIAN: Dr. Misha Navarrete initially and then transferred care to hospitalist services. ATTENDING HOSPITALIST: Today is, Dr. Alvares.* (DICTATED BY LUCY ALBRIGHT) CONSULTATIONS: Reji Orourke DO, from ICU. PROCEDURE: Total laryngectomy with neck dissection on 04/22/18. HISTORY OF PRESENT ILLNESS: Mr. Phelps is a 52-year-old gentleman, whose past medical history significant for hypertension, GERD, and squamous cell carcinoma of the larynx, for which he had a prior emergent tracheostomy for airway obstruction a few weeks ago. The patient was eventually stabilized and was discharged home after he found to have a large laryngeal mass proven on biopsy to be squamous cell carcinoma. The patient returned for an elective total laryngectomy on 04/22/18, for which he was admitted directly from [facility]Day [facility], and was taken to the operating room for surgery. He underwent a total laryngectomy with neck dissection on 04/22/18, by Dr. Navarrete and then was discharged to recovery room in a stable condition. Given his history, the patient was transferred to the ICU unit for immediate postoperative care. HOSPITAL COURSE: The patient was admitted initially under Dr. Navarrete's services, and then his care was transferred to Dr. Orourke and eventually to hospitalist services. The patient was transferred to the ICU in the immediate postoperative period. He did relatively well with only mild incisional discomfort that was well tolerated using pain medicine as needed. He had an NG tube for feeding purposes and tube feeding was initiated on the second day from admission. He had a chest x-ray on a daily basis showing a tracheostomy tube in place as well as a feeding tube with the tip at the GE junction. There was no evidence of any aspiration or abnormality. The patient continued his stay in intensive care unit for the following couple of days. He had laboratory workup on a daily basis shown initially elevated white count in the first day postoperatively that was likely a stress reaction; however, his leukocytosis is eventually normalized afterwards. His hemoglobin and hematocrit remained stable with no evidence of bleeding. His chemistry panel also revealed normal electrolytes. The patient continued to clinically improve and his only complaint postoperatively was some shoulder numbness without any weakness. He was seen by ENT for his history of squamous cell carcinoma with fortunately no metastatic disease on prior imaging done. library services assistant were consulted regarding arrangement for a tube feeding at home. The patient eventually was transferred from intensive care unit to the medical floor, the day before his discharge. He continued to improve and was ambulatory out of bed. His vitals remained stable and he was afebrile. His tube feeding started at a rate of 40 mL/hour that was gradually increased to a target rate of 80 mL/hour and the patient tolerated that very well without any evidence of regurgitation, nausea or backflow. He had proper training with [facility] staff about how to use the feeding tube and he will be discharged to home with a tube feeding to be fit in his residence as well. We discussed discharge instruction and the patient will be able to shower at home after he purchased a shield for his laryngectomy opening in his anterior neck. He will also continued to take Tylenol liquid and his other medication via his NG tube after he crushes it. He received all the education from nursing staff and he is comfortable to be discharged to home. He has a followup appointment with Dr. Navarrete next week for stable removal and to discuss plan of care. He anticipated using NG tube feeding for approximately the following 2 weeks before a trial of soft diet orally. Today, on his exam, his vitals were stable with temperature of 98 degrees, pulse of 91, blood pressure of 141/93, respirations of 18 with O2 saturation of 96% on room air. His lungs were clear to auscultation bilaterally. His heart was regular rate and rhythm without rubs, murmurs or gallops. His right facial incision appears to be healed well. There is some minimal swelling noted without erythema or discharge. His laryngectomy incision appears to be healing well. He will be discharged to home and follow up with ENT as planned. DISCHARGE MEDICATIONS: Include: 1. Lisinopril 20 mg p.o. daily. 2. Omeprazole 20 mg p.o. daily. 3. Acetaminophen. 4. Adult liquid Tylenol 650 mg/20 mL liquid via the NG tube every 6 hours as needed for fever or pain. LUCY ALBRIGHT [id number]/[facility] #: [id number] [facility]PITALCaro
== END 2018-04-28 14:50 | disposition home or self-care (01) | DRG 90 ==
LOC: AA 10:33 → ICU 20:05 → SSU 04-23 14:00 → ICU 04-23 17:31 → SSU 04-27 17:35
PROVIDERS: ADMIT Otolaryngology; ATTEND Student in an Organized Health Care Education/Training Program
PROC: 07B20ZZ Excision of Left Neck Lymphatic, Open Approach (ICD-10-PCS; 2018-04-22)
PROC: 07B10ZZ Excision of Right Neck Lymphatic, Open Approach (ICD-10-PCS; 2018-04-22)
PROC: 3E0G76Z Introduction of Nutritional Substance into Upper GI, Via Natural or Artificial Opening (ICD-10-PCS; 2018-04-22)
PROC: 0CTS0ZZ Resection of Larynx, Open Approach (ICD-10-PCS; principal; 2018-04-22 12:00)
PROC: 0DH67UZ Insertion of Feeding Device into Stomach, Via Natural or Artificial Opening (ICD-10-PCS; 2018-04-23)
PROC: 0CJS8ZZ Inspection of Larynx, Via Natural or Artificial Opening Endoscopic (ICD-10-PCS; 2018-04-23)
DX: C32.8 Malignant neoplasm of overlapping sites of larynx (principal); E87.1 Hypo-osmolality and hyponatremia; I10 Essential (primary) hypertension; R20.0 Anesthesia of skin; F41.9 Anxiety disorder, unspecified; K21.9 Gastro-esophageal reflux disease without esophagitis; D72.829 Elevated white blood cell count, unspecified; Z93.0 Tracheostomy status; Z88.0 Allergy status to penicillin; Z87.891 Personal history of nicotine dependence; Z72.89 Other problems related to lifestyle
CPT/HCPCS: 36415; 71045; 80048; 80053; 83735; 85025; 85610; 88305; 88309; A9270-GY; C1776; J0744; J1100; J1170; J2001; J2250; J2405; J2704; J2765; J3010; J3475; L8509

== ENCOUNTER → 2018-08-09 05:54 | Day surgery (SDC) | payer MEDICAID, OTHER ==
[2018-08-09 06:49] VITALS: BP 158/98
--- NOTE | 2018-08-09 14:26 | OP ---
DATE OF OPERATION: 08/09/18 - [facility] DATE OF : 67 SURGEON: Arnoldo Navarrete MD ANESTHESIA: No anesthesia. PRE-OP DIAGNOSIS: POST-OP DIAGNOSIS: OPERATIVE PROCEDURE: Changing his tracheoesophageal puncture prosthesis. DESCRIPTION OF PROCEDURE: A #10 Provox2 tracheoesophageal puncture prosthesis was used. The patient was sitting up. The old tracheoesophageal puncture prosthesis was removed. A new one was loaded into the insertion system and was placed through the puncture, and then the tail was trimmed and was rotated into position. The patient tolerated this procedure well. [id number]/[facility] #: [id number] MTDD
== END | disposition home or self-care (01) ==
LOC: OR 05:54
PROVIDERS: ATTEND Otolaryngology
DX: Z43.9 Encounter for attention to unspecified artificial opening (principal); C32.8 Malignant neoplasm of overlapping sites of larynx; I10 Essential (primary) hypertension; Z87.891 Personal history of nicotine dependence
CPT/HCPCS: L8509

== ENCOUNTER → 2018-10-21 12:29 | Day surgery (SDC) | payer OTHER ==
[2018-10-21 13:30] VITALS: BP 117/79
--- NOTE | 2018-10-21 21:42 | OP ---
DATE OF OPERATION: 10/21/18 - [facility] DATE OF : 67 SURGEON: Arnoldo Navarrete MD ANESTHESIA: No anesthesia. PRE-OP DIAGNOSIS: Leaking tracheoesophageal puncture prosthesis. POST-OP DIAGNOSIS: OPERATIVE PROCEDURE: Replacement of a leaking tracheoesophageal puncture prosthesis. DESCRIPTION OF PROCEDURE: The patient was in Same Day. He had a tracheoesophageal puncture prosthesis that was leaking. I grasped and removed it, replaced it with a #10 Provox 2 tracheoesophageal puncture prosthesis. [id number]/[facility] #: [id number] MTDD
== END | disposition home or self-care (01) ==
LOC: OR 12:29
PROVIDERS: ATTEND Otolaryngology
DX: T85.898A Other specified complication of other internal prosthetic devices, implants and grafts, initial encounter (principal); Z43.9 Encounter for attention to unspecified artificial opening; C32.9 Malignant neoplasm of larynx, unspecified; I10 Essential (primary) hypertension; R91.8 Other nonspecific abnormal finding of lung field
CPT/HCPCS: L8509

== ENCOUNTER → 2019-01-18 10:24 | Day surgery (SDC) | payer OTHER ==
[2019-01-18 13:00] VITALS: BP 146/100
--- NOTE | 2019-01-18 15:32 | OP ---
DATE OF OPERATION: 01/18/19 - [facility] DATE OF : 67 SURGEON: Arnoldo Navarrete MD ANESTHESIA: None. PRE-OP DIAGNOSIS: Leaking tracheoesophageal puncture prosthesis. OPERATIVE PROCEDURE: Replacement of his tracheoesophageal puncture prosthesis. DESCRIPTION OF PROCEDURE: The patient had some leaking through his tracheoesophageal puncture prosthesis. That was removed. Initially, I had put in a 20-Japanese #10 Yusra-August, but the internal valve did not close, so I removed that and replaced it with a #8 Provox2 prosthesis without difficulty. [id number]/[facility] #: [id number] MTDD
== END | disposition home or self-care (01) ==
LOC: OR 10:24
PROVIDERS: ATTEND Otolaryngology
DX: T85.628A Displacement of other specified internal prosthetic devices, implants and grafts, initial encounter (principal); C32.8 Malignant neoplasm of overlapping sites of larynx; R91.8 Other nonspecific abnormal finding of lung field; Z43.8 Encounter for attention to other artificial openings

== ENCOUNTER → 2019-05-26 09:43 | Day surgery (SDC) | payer OTHER ==
--- NOTE | 2019-05-26 11:15 | OP ---
DATE OF OPERATION: 05/26/19 - [facility] DATE OF : 67 SURGEON: Arnoldo Navarrete MD ANESTHESIA: None DIAGNOSIS: Tracheoesophageal puncture prosthesis with status post total laryngectomy. OPERATIVE PROCEDURE: Replacement of tracheoesophageal puncture prosthesis with a #8 Provox 2 prosthesis. DESCRIPTION OF PROCEDURE: The old prosthesis was grasped and removed. The new prosthesis had been loaded into the insertion unit. Placed through the fistula , inserted, and the tail was trimmed and was rotated into place. The patient tolerated this well. [id number]/[facility] #: [id number] MTDD
== END | disposition home or self-care (01) ==
LOC: OR 09:43
PROVIDERS: ATTEND Otolaryngology
DX: T85.898A Other specified complication of other internal prosthetic devices, implants and grafts, initial encounter (principal); Z43.8 Encounter for attention to other artificial openings; Z90.02 Acquired absence of larynx; R91.8 Other nonspecific abnormal finding of lung field; Z85.21 Personal history of malignant neoplasm of larynx

== ENCOUNTER → 2019-09-22 08:03 | Day surgery (SDC) | payer OTHER ==
[~2019-09-22 08:03] MED LIST changes: +Benzocaine/Butamben/Tetracain (CETACAINE - SINGLE USE) 5 gm TOPICAL ONE; -Buffered Lidocaine 0.9% SYRIN* 5 ML/SYR SYRINGE INTRADERM ONE; -Famotidine IV* 10 MG/ML 2 ML (20 mg) IV ONE; +Lidocaine 2% JELLY* 20 ML (for OR use) ONE
--- NOTE | 2019-09-22 16:50 | OP ---
DATE OF OPERATION: 09/22/19 - [facility] DATE OF : 67 SURGEON: Jani Santana MD PRE-OP DIAGNOSIS: Aphonia, status post laryngectomy. POST-OP DIAGNOSIS: Aphonia, status post laryngectomy. OPERATIVE PROCEDURE: Replacement of TEP. BRIEF HISTORY: This 54-year-old gentleman with previous laryngectomy with previous placement of TEP, had had leaking from the TEP. He had a #10 Provox prosthesis inserted in the past and it was to be replaced. DESCRIPTION OF PROCEDURE: The patient was at the bedside. Topical anesthesia with Cetacaine spray, previously noted TEP was removed, insertion of the #10 TEP was then carried out, Provox type. The patient tolerated this procedure and was checked with the patient's ability to drink without leakage and having good voice. The patient was then discharged home after vitals were done and stable. [id number]/[facility] #: [id number] MTDD
== END | disposition home or self-care (01) ==
LOC: OR 08:03
PROVIDERS: ATTEND Otolaryngology
DX: Z44.8 Encounter for fitting and adjustment of other external prosthetic devices (principal); R49.1 Aphonia; Z85.21 Personal history of malignant neoplasm of larynx
CPT/HCPCS: L8509

== ENCOUNTER → 2019-10-10 12:54 | Day surgery (SDC) | payer OTHER ==
--- NOTE | 2019-10-10 14:32 | OP ---
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 OPERATIVE PROCEDURE: Replacement of TEP from #10 to normal #8, Provox prosthesis. BRIEF HISTORY: This is a 54-year-old year old with a history of aphonia with a laryngeal speech. Unfortunately, his TEP was leaking, I think mostly from size. DESCRIPTION OF PROCEDURE: The patient at the bedside previous TEP was removed # 8 Provox type 2 was placed. The patient tolerated this without any difficulty. Observed for aspiration, none noted. He was discharged home. Follow up in the office as needed. [id number]/[facility] #: [id number] MTDCaro
[2019-10-10 14:47] VITALS: BP 170/114
== END | disposition home or self-care (01) ==
LOC: OR 12:54
PROVIDERS: ATTEND Otolaryngology
DX: Z44.8 Encounter for fitting and adjustment of other external prosthetic devices (principal); R49.1 Aphonia; Z85.21 Personal history of malignant neoplasm of larynx